=== PATIENT | male | born 1965 | race Two or more races ===

== ENCOUNTER 2016-06-10 08:11 | Inpatient (IN) | payer OTHER ==
[~2016-06-10] VITALS: Ht 170.2 cm; Wt 91.7 kg
[~2016-06-10 08:11] MED LIST: AMOX1TAB61 PO; Oxycodone Hcl/Acetaminophen PO
[2016-06-10] MEDS ORDERED: NITROGLYCERIN SUBLINGUAL 0.4 MG BOTTLE OF 25. SL PRN ×2 (08:30→11:30)
[2016-06-10] MEDS ORDERED: IV NORMAL SALINE 1000ML BAG 1,000 ML IV ONE ×2 (08:30→19:30)
[2016-06-10] MEDS: FENTANYL PF 100 MCG/2 ML VIAL. IV PRN ×5 (08:35→20:16)
--- NOTE | 2016-06-10 08:52 | RAD ---
Portable chest, 06/10/2016: History: Chest pain Comparison is made to a study from September 01, 2012. The heart is at the upper limits of normal in size. The pulmonary vascularity is within normal limits. No pulmonary infiltrate is seen. There is no evidence of pleural fluid. IMPRESSION: No acute cardiopulmonary abnormality is detected.
[2016-06-10 08:53] LABS: BASO # 0.1 x10^3/uL (0.0-0.2); BASO % 1 % (0-3); EOS % 2 % (0-3); LYMPH % 21 % (24-48); MEAN CORPUSCULAR HEMOGLOBIN 31 pg (25-35); MEAN CORPUSCULAR HGB CONC 33 g/dL (31-37); MEAN CORPUSCULAR VOLUME 92 fL (79-100); MONO % 5 % (0-9); NEUT % 72 % (31-73); PLATELET COUNT 273 x10^3/uL (140-400); RED BLOOD COUNT 4.22 x10^6/uL (4.30-5.70); RED CELL DISTRIBUTION WIDTH 13.7 % (11.5-14.5); WHITE BLOOD COUNT 14.5 x10^3/uL (4.0-11.0)
[2016-06-10 09:03] LABS: INR 1.1 (0.8-1.1); PROTHROMBIN TIME PATIENT 13.2 SEC (11.7-14.0)
[2016-06-10] MEDS ORDERED: IOHEXOL 350 MG/ML 100ML VIAL. IV ONE (09:15)
--- NOTE | 2016-06-10 09:21 | ED.ADGEN ---
Past Medical History Past Medical History: No Pertinent History, Kidney Stone Past Surgical History: Appendectomy Alcohol Use: None Drug Use: None Adult General Chief Complaint Chief Complaint: CHEST PAIN-CARDIAC NATURE HPI HPI Patient is a 50 year old man, with no known past no history, who presents emergency department via EMS with report of anterior chest pain and pressure that began about an hour prior to arrival. Patient states that he was seated at home, when he began experiencing pressure across intercourse of his chest, described as a heaviness, and a sharp sensation, any shortness of breath, nausea vomiting, any lightheadedness or dizziness, any weakness numbness or tingling. Patient received nitroglycerin 2, and 100 mg of fentanyl en route to the ED, states he is still sprinting severe chest pain upon arrival. Denies any abdominal pain, any injuries, any similar symptoms previously. Has not previously had a cardiac evaluation. Blood pressure noted to be 80s over 60s, equal in both upper extremities, with pulses equal in upper and lower extremities. No history of recent travel or surgery, no history of DVT or PE, no drugs, alcohol or cigarettes. Review of Systems Review of Systems Constitutional: Denies fever or chills. [] Eyes: Denies change in visual acuity. [] HENT: Denies nasal congestion or sore throat. [] Respiratory: Denies cough or shortness of breath. [] Cardiovascular: Midsternal chest pain, nonradiating, no edema. GI: Denies abdominal pain, nausea, vomiting, bloody stools or diarrhea. [] : Denies dysuria. [] Musculoskeletal: Denies back pain or joint pain. [] Integument: Denies rash. [] Neurologic: Denies headache, focal weakness or sensory changes. [] Endocrine: Denies polyuria or polydipsia. [] Lymphatic: Denies swollen glands. [] Psychiatric: Denies depression or anxiety. [] Current Medications Current Medications Current Medications Medications (Trade) Dose Ordered Sig/Carlton Start Time Stop Time Status Last Admin Dose Admin Fentanyl Citrate 25 mcg 25 mcg PRN Q15MIN PRN 06/10/16 08:30 06/11/16 08:29 06/10/16 09:25 25 MCG Iohexol (Omnipaque 350 Mg/ml) 90 ml 1X ONCE 06/10/16 09:15 06/10/16 09:16 DC 06/10/16 09:37 90 ML Multi-Ingredient Mouthwash/Gargle (Gi Cocktail Single Dose) 15 ml 1X ONCE 06/10/16 10:00 06/10/16 10:01 DC 06/10/16 09:58 15 ML Nitroglycerin (Nitrostat) 0.4 mg PRN Q5MIN PRN 06/10/16 08:30 06/11/16 08:29 Sodium Chloride (Iv Sodium Chloride 0.9% 1000ml Bag) 1,000 ml @ 1,000 mls/hr 1X ONCE 06/10/16 08:30 06/10/16 09:29 DC 06/10/16 08:20 1,000 MLS/HR Allergies Allergies Allergies Coded Allergies Type Severity Reaction Last Updated Verified No Known Drug Allergies 10/05/13 No Physical Exam Physical Exam Constitutional: Well developed, well nourished, distress secondary to pain, appears uncomfortable, non-toxic appearance. [] HENT: Normocephalic, atraumatic, bilateral external ears normal, oropharynx moist, no oral exudates, nose normal. [] Eyes: PERRLA, EOMI, conjunctiva normal, no discharge. [] Neck: Normal range of motion, no tenderness, supple, no stridor. [] Cardiovascular:Heart rate regular rhythm, no murmur, S1, S2, rubs or gallops. [] Lungs & Thorax: Bilateral breath sounds clear to auscultation, no wheezing, rhonchi, rales. No chest or crepitus or tenderness. Unable to reproduce symptoms with palpation. [] Abdomen: Bowel sounds normal, soft, no rebound, rigidity, no guarding no tenderness, no masses, no pulsatile masses. [] Skin: Warm, dry, no erythema, no rash. [] Back: No tenderness, no CVA tenderness. [] Extremities: No tenderness, no cyanosis, no clubbing, ROM intact, no edema. Negative Homans sign. [] Neurologic: Alert and oriented X 3, normal motor function, normal sensory function, no focal deficits noted. [] Psychologic: Affect normal, judgement normal, mood normal. [] Current Patient Data Vital Signs Vital Signs Date Time Temp Pulse Resp B/P Pulse Ox O2 Delivery O2 Flow Rate FiO2 06/10/16 09:32 82 18 108/70 97 Room Air 06/10/16 08:11 98.3 98.3 Lab Values Laboratory Tests Test 06/10/16 08:25 06/10/16 08:31 06/10/16 08:33 06/10/16 09:15 White Blood Count 14.5x10^3/uL (4.0-11.0) H Red Blood Count 4.22x10^6/uL (4.30-5.70) L Hemoglobin 13.0g/dL (13.0-17.5) Hematocrit 39.0% (39.0-53.0) Mean Corpuscular Volume 92fL (79-100) Mean Corpuscular Hemoglobin 31pg (25-35) Mean Corpuscular Hemoglobin Concent 33g/dL (31-37) Red Cell Distribution Width 13.7% (11.5-14.5) Platelet Count 273x10^3/uL (140-400) Neutrophils (%) (Auto) 72% (31-73) Lymphocytes (%) (Auto) 21% (24-48) L Monocytes (%) (Auto) 5% (0-9) Eosinophils (%) (Auto) 2% (0-3) Basophils (%) (Auto) 1% (0-3) Neutrophils # (Auto) 10.4x10^3uL (1.8-7.7) H Lymphocytes # (Auto) 3.0x10^3/uL (1.0-4.8) Monocytes # (Auto) 0.8x10^3/uL (0.0-1.1) Eosinophils # (Auto) 0.2x10^3/uL (0.0-0.7) Basophils # (Auto) 0.1x10^3/uL (0.0-0.2) Prothrombin Time 13.2SEC (11.7-14.0) Prothrombin Time INR 1.1 (0.8-1.1) PTT 28SEC (24-38) D-Dimer (Steph) 0.30ug/mlFEU (0.00-0.50) Troponin I Quantitative < 0.017ng/mL (0.000-0.055) TX-Ovy-L-Type Natriuretic Peptide 19pg/mL (0-124) Lipase 86U/L (73-393) POC Hemoglobin 13.3g/dL (14-18) L POC Hematocrit 39% (37-52) POC Sodium 140mmol/L (135-145) POC Potassium 4.0mmol/L (3.5-5.0) POC Chloride 103mmol/L (98-110) POC Total CO2 25mmol/L (23-32) Anion Gap 17mmol/L (6-14) H POC Blood Urea Nitrogen 13mg/dL (8-26) POC Creatinine 0.9mg/dL (0.5-1.4) Glucose Level 139mg/dL (70-99) H POC Ionized Calcium (Miryam) 1.12mmol/L (1.13-1.32) L POC Troponin I 0.00ng/ml (<0.08) Urine Collection Type Unknown Urine Color Aicha Urine Clarity Clear Urine pH 6.0 Urine Specific [place] >=1.030 Urine Protein Negativemg/dL (NEG-TRACE) Urine Glucose (UA) Negativemg/dL (NEG) Urine Ketones (Stick) Tracemg/dL (NEG) Urine Blood Negative (NEG) Urine Nitrite Negative (NEG) Urine Bilirubin Small (NEG) Urine Urobilinogen Dipstick 0.2mg/dL (0.2 mg/dL) Urine Leukocyte Esterase Negative (NEG) Urine RBC 0/HPF (0-2) Urine WBC 0/HPF (0-4) Urine Squamous Epithelial Cells Mod/LPF Urine Bacteria 0/HPF (0-FEW) Urine Opiates Screen Neg (NEG) Urine Methadone Screen Neg (NEG) Urine Barbiturates Neg (NEG) Urine Phencyclidine Screen Neg (NEG) Urine Amphetamine/Methamphetamine Neg (NEG) Urine Benzodiazepines Screen Neg (NEG) Urine Cocaine Screen Neg (NEG) Urine Cannabinoids Screen Neg (NEG) Urine Ethyl Alcohol Neg (NEG) Laboratory Tests 06/10/16 08:25 Laboratory Tests 06/10/16 08:31 EKG EKG EC: Sinus rhythm, heart rate 50 bpm, T-wave inversions noted in lead 3, QTC of 380, MS 162, QRS of 82, abnormal ECG, does not meet STEMI criteria. As interpreted by me. [] Radiology/Procedures Radiology/Procedures [] [facility] [address] [place], [place] [id number] IMAGING REPORT Signed PATIENT: ASHLEY NICHOLS ACCOUNT: [id number] : 1965 LOCATION: ER AGE: 50 SEX: M EXAM STATUS: REG ER ORD. PHYSICIAN: ALEXANDRA GABRIEL DO REASON: CP/hypotension/r/o dissection PROCEDURE: CTA CHEST CTA of the chest with and without contrast, 06/10/2016: History: Chest pain, possible aortic dissection Multidetector CT imaging was performed prior to and following an IV bolus injection of iodinated contrast material. 3-D volume rendered reconstructions of the aorta were produced from the postcontrast data set. The thoracic aorta is not enlarged. There is only minimal calcific plaquing of the aorta and coronary arteries. Pulsation type artifacts are seen related to the ascending aorta. There is no evidence of aortic dissection. No mediastinal or hilar adenopathy is seen. There are moderate peripheral groundglass and streaky opacities in the posterior aspects of both lungs suggesting atelectasis. A component of dependent pulmonary edema cannot be excluded. No pleural fluid is evident. IMPRESSION: 1. Minimal calcific plaquing of the aorta and coronary arteries. 2. No evidence of aortic aneurysm or dissection. 3. Moderate dependent atelectasis and/or edema in both lungs. PQRS Compliance Statement: One or more of the following individualized dose reduction techniques were utilized for this examination: 1. Automated exposure control 2. Adjustment of the mA and/or kV according to patient size 3. Use of iterative reconstruction technique Impressions: [facility] [address] [place] [address] IMAGING REPORT Signed PATIENT: ASHLEY NICHOLS ACCOUNT: [id number] : 1965 LOCATION: ER AGE: 50 SEX: M EXAM STATUS: PRE ER ORD. PHYSICIAN: ALEXANDRA GABRIEL DO REASON: CP PROCEDURE: PORTABLE CHEST 1V Portable chest, 06/10/2016: History: Chest pain Comparison is made to a study from September 01, 2012. The heart is at the upper limits of normal in size. The pulmonary vascularity is within normal limits. No pulmonary infiltrate is seen. There is no evidence of pleural fluid. IMPRESSION: No acute cardiopulmonary abnormality is detected. DICTATED and SIGNED BY: MORELIA DE LA TORRE MD DATE: 06/10/16 0848 CC: ISAI TILLEY; ALEXANDRA GABRIEL DO ~ Course & Med Decision Making Course & Med Decision Making Pertinent Labs and Imaging studies reviewed. (See chart for details) After receiving several doses of fentanyl, and a GI cocktail, patient is resting more comfortably. Initial troponin negative, due to the degree of his pain, and hypotension, CT of the chest obtained which was negative for evidence of dissection or other acute abnormalities. Patient's blood pressure did improve as his pain improved, and he had been holding his breath, and bearing down, and I believe that this was contributing to the hypotension, due to a vagal cause. Formal troponin also unremarkable, repeat ECG does not show any significant changes, patient noted to have left axis deviation, with abnormalities noted in lead 3, otherwise normalities identified. However patient has not previously had a cardiac evaluation, and is agreeable for initial hospital for additional evaluation of his chest pain to rule out ACS or other concerning cause, after discussion with patient and family at bedside. Findings as above discussed with Dr. Wahl on-call for the patient's primary care provider, patient accepted to his service as a full admission to the cardiac telemetry floor with cardiology consultation with Dr. Lee. She remained stable in sinus rhythm on the monitor, with pain improved, bridge ordered entered per Dr. Wahl's request. Dragon Disclaimer Dragon Disclaimer This electronic medical record was generated, in whole or in part, using a voice recognition dictation system. Departure Impression: Primary Impression: Chest pain Disposition: ADMITTED INPATIENT Admitting Physician: Sam Wahl Condition: IMPROVED Problem Qualifiers Primary Impression: Chest pain Chest pain type: unspecified Qualified Code: R07.9 - Chest pain, unspecified ALEXANDRA GABRIEL DO Jun 10, 2016 09:20
[2016-06-10 09:41] LABS: BARBITURATES NEG (NEG); BENZODIAZEPINES NEG (NEG); BILIRUBIN,URINE SMALL (NEG); CANNABINOIDS NEG (NEG); COCAINE NEG (NEG); GLUCOSE,URINE NEGATIVE (NEG); METHADONE NEG (NEG); NITRITE,URINE NEGATIVE (NEG); OPIATES NEG (NEG); PHENCYCLIDINE NEG (NEG); PROTEIN,URINE NEGATIVE (NEG-TRACE); UROBILINOGEN,URINE 0.2 mg/dL (0.2 mg/dL)
[2016-06-10 09:42] LABS: ETHANOL, URINE NEG (NEG)
[2016-06-10 09:48] LABS: BACTERIA,URINE 0 /HPF (0-FEW); RBC,URINE 0 /HPF (0-2); SQUAMOUS EPITHELIAL CELL,UR MOD /LPF; WBC,URINE 0 /HPF (0-4)
[2016-06-10] MEDS ORDERED: LIDO:MAALOX:DONNATAL 1:1:1 15 ML SINGLE DOSE SWSW ONE (10:00)
--- NOTE | 2016-06-10 10:15 | RAD ---
CTA of the chest with and without contrast, 06/10/2016: History: Chest pain, possible aortic dissection Multidetector CT imaging was performed prior to and following an IV bolus injection of iodinated contrast material. 3-D volume rendered reconstructions of the aorta were produced from the postcontrast data set. The thoracic aorta is not enlarged. There is only minimal calcific plaquing of the aorta and coronary arteries. Pulsation type artifacts are seen related to the ascending aorta. There is no evidence of aortic dissection. No mediastinal or hilar adenopathy is seen. There are moderate peripheral groundglass and streaky opacities in the posterior aspects of both lungs suggesting atelectasis. A component of dependent pulmonary edema cannot be excluded. No pleural fluid is evident. IMPRESSION: 1. Minimal calcific plaquing of the aorta and coronary arteries. 2. No evidence of aortic aneurysm or dissection. 3. Moderate dependent atelectasis and/or edema in both lungs. PQRS Compliance Statement: One or more of the following individualized dose reduction techniques were utilized for this examination: 1. Automated exposure control 2. Adjustment of the mA and/or kV according to patient size 3. Use of iterative reconstruction technique
[2016-06-10 10:35] LABS: ALBUMIN 3.5 g/dL (3.4-5.0); DIRECT BILIRUBIN 0.1 mg/dL (0.0-0.2); TOTAL BILIRUBIN 0.4 mg/dL (0.2-1.0); TOTAL PROTEIN 6.8 g/dL (6.4-8.2)
--- NOTE | 2016-06-10 11:00 | EKG ---
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
--- NOTE | 2016-06-10 11:06 | EKG ---
[facility] [address] [place] [address] Test Date: 2016-06-10 Test Time: 09:27:34 Pat Name: ASHLEY NICHOLS Department: Room: Gender: M Excellence Manager: : 1965 Requested By: ALEXANDRA GABRIEL Order Number: [id number] Reading MD: Toya Dawn Measurements Intervals [place] Rate: 80 P: 28 NE: 190 QRS: -12 QRSD: 82 T: 12 QT: 356 QTc: 414 Interpretive Statements SINUS RHYTHM LEFTWARD AXIS OTHERWISE NORMAL ECG RI6.01 No previous ECG available for comparison Electronically Signed On 06-13-2016 20:29:04 ENVIRONMENTAL HEALTH MANAGER by Toya Dawn
--- NOTE | 2016-06-10 11:13 | ACF ---
Admission Forms Criteria CARDIOLOGY GRG Clinical Indications for Admission to Inpatient Care ( Place 'X' for any and all applicable criteria): Hospital admission is needed for appropriate care of the patient because of ANY ONE of the following (1): [ ] I. Hemodynamic instability as indicated by ALL of the following (1)(2)(3) (4)(5) [ ]a) Vital signs or other findings not as expected for chronic patient condition or baseline [ ]b) Instability indicated by ANY ONE of the following: [ ]i) Hypotension [ ]ii) Symptomatic Tachycardia unresponsive to treatment ( e.g., analgesia, fluids, sedation as indicated) [ ]iii) Inadequate perfusion indicated by ANY ONE of the following: [ ] 1) Lactic acidosis (> 2 mmol/L) [ ] 2) New abnormal capillary refill (> 3 seconds) [ ] 3) Reduced urine output [ ] 4) New altered mental status [ ]iv) Orthostatic vital sign changes unresponsive to treatment (e.g., fluids) [ ]v) IV inotropic or vasopressor medication required to maintain adequate blood pressure or perfusion [ ] II. Severe heart failure as indicated by ANY ONE of the following(17)(18) [ ]a) Respiratory distress [ ]b) Hypotension [ ]c) Anasarca (refractory to outpatient therapy) [ ]d) Cardiac arrhythmias of immediate concern [ ]e) Myocardial ischemia [ ] III. Cardiac arrhythmias or findings of immediate concern indicated by ANY ONE of the following (19)(20): [ ] a) Heart rhythms that are inherently dangerous or unstable indicated by ANY ONE of the following (21)(22)(23): [ ] i) Resuscitated ventricular fibrillation or cardiac arrest [ ] ii) Ventricular escape rhythm [ ] iii) Sustained ventricular tachycardia (30 seconds or more of ventricular rhythm at greater than 100 beats per minute) [ ] iv) Nonsustained ventricular tachycardia and ANY ONE of the following: [ ] 1) Suspected cardiac ischemia as cause or consequence of ventricular tachycardia [ ] 2) In setting of acute myocarditis [ ] b) Unstable cardiac conduction defects indicated by ANY ONE of the following(23)(24)(25) [ ] i) Type II second-degree atrioventricular block [ ]ii) Third-degree atrioventricular block [ ]iii) New-onset left bundle branch block with suspected myocardial ischemia [ ]c) Any heart rhythm and ANY ONE of the following (21)(22)(26)(27) (28) [ ] i) Continuous long-term ECG monitoring needed (e.g., initiation of drug requiring monitoring for more than 24 hours) [ ] ii) Patient has automatic implanted cardioverter defibrillator that is repeatedly firing, malfunctioning, or in need of immediate adjustment of settings beyond the scope of ambulatory or observation care [ ]d) Heart rhythms of concern due to ANY ONE of the following: [ ] i) Hypotension [ ] ii) Respiratory distress [ ] iii) Association with other significant symptoms (e.g., bradycardia with syncope or ongoing dizziness, supraventricular tachycardia with chest pain (14)(15)(17) [ ] IV. Monitoring for cardiac contusion beyond the scope of observation care needed [A](30)(31)(32) [ ] V. Surgical or device complication (e.g., valve replacement complication , pacemaker dysfunction) (35)(41)(44)(45)(46) [ ] . Inpatient palliative care needed. [B](49) Also use Inpatient Palliative Care Criteria [ ] VII. Nonbacterial thrombotic (marantic) endocarditis (36)(43)(47)(48) [X] VIII. Cardiology condition, symptom, or finding for which emergency and observation care has failed or are not considered appropriate. [ ] IX. Acute valvular disease requiring inpatient as indicated by ANY ONE of the following (41) [ ]a) Acute valvular regurgitation (42) [ ]b) Noninfectious valvulitis (43) [ ]c) Obstructive valve thrombosis [ ]d) Paravalvular leak [ ]e) Other significant valvular disorder remaining after emergency or observation level of care (as appropriate) [ ]X. Pericardial disease requiring inpatient treatment as indicated by ANY ONE of the following (33)(34)(35)(36)(37) [ ]a) Suspected tamponade (38)(39)(40) [ ]b) Hemopericardium [ ]c) Other significant pericardial disorder remaining after emergency or observation level of care (as appropriate) [ ] XI. Cardiac ischemia beyond scope of emergency and observation care. [ ] XII. Hypertension requiring inpatient treatment as indicated by ANY ONE of the following (6)(7)(8) [ ]a) SBP greater than 220 mm Hg or DBP greater than 120 mmHg despite treatment [ ]b) SBP greater than 140 mm Hg or DBP greater than 100 mm Hg with evidence of acute end organ damage as indicated by ANY ONE of the following [ ] i) Encephalopathy [ ] ii) Acute renal failure as indicated by new onset of ANY ONE of the following (9)(10)(11)(12)(13) [ ]1) 3-fold rise in serum creatinine from baseline [ ]2) Serum creatinine greater than 4 mg/dL ( 354 micromoles/L) with acute rise greater than 0.5 mg/dL (44.2 micromoles/L) [ ]3) Reduction of more than 75% in estimated glomerular filtration rate from baseline [ ]4) Estimated glomerular filtration rate less than 35 mL/min/1.73m2 (0.59 mL/sec/1.73m2) in child up to 18 years of age [ ]5) Cessation of urine output indicated by ALL of the following [ ]A. Adequate volume status [ ]B. Inadequate urine output as indicated by ANY ONE of the following [ ]a. Urine output less than 0.3 mL/kg/hr for 24 hours [ ]b. Anuria (urine output less than 0.1 mL/kg/hr) for 12 hours [ ] iii) Aortic dissection [ ] iv) Myocardial Ischemia [ ] v) Left ventricular heart failure [ ]vi) Retinal Hemorrhage [ ]vii) Other significant finding [ ]c) Hypertension in child requiring inpatient treatment as indicated by ALL of the following(14)(15)(16) [ ] i) Outpatient treatment not effective, not available, or not appropriate [ ]ii) SBP or DBP greater than 95th percentile for age [ ]iii) Evidence of acute end organ damage as indicated by ANY ONE of the following [ ]1) Altered mental status [ ]2) Acute renal failure as indicated by new onset of ANY ONE of the following(9)(10)(11)(12)(13) [ ]A. 3-fold rise in serum creatinine from baseline [ ]B. Serum creatinine greater than 4 mg/dL (354 micromoles/L) with acute rise greater than 0.5 mg/dL (44.2 micromoles/L) [ ]C. Reduction of more than 75% in estimated glomerular filtration rate from baseline [ ]D. Estimated glomerular filtration rate less than 35 mL/min/1.73m2 (0.59 mL/sec/1.73m2) in child up to 18 years of age [ ]E. Cessation of urine output indicated by ALL of the following [ ]a. Adequate volume status [ ]b. Inadequate urine output as indicated by ANY ONE of the following [ ]i) Urine output less than 0.3 mL/kg/hr for 24 hours [ ]ii) Anuria ( urine output less than 0.1 mL/kg/hr) for 12 hours [ ]3) Severe headache [ ]4) Visual disturbance [ ]5) Retinal hemorrhage [ ]6) Other significant finding [ ]XIII. Complications of transplanted heart indicated by ANY ONE of the following(61): [ ]a) Acute graft rejection requiring inpatient management (eg, intravenous immunosuppression)(62)(63) [ ]b) Acute graft heart failure indicated by ANY ONE of the following(64): [ ]i) Hemodynamic instability [ ]ii) Cardiac arrhythmias of immediate concern [ ]iii) Pulmonary edema that is very severe (eg, mechanical ventilation needed, imminent or likely, need for 100% oxygen to keep oxygen saturation above 90%) [ ]iv) Pulmonary edema that is persistent as indicated by ALL of the following: [ ]1) New need for oxygen therapy to keep oxygen saturation above 90% (or increased FiO2 need from baseline) [ ]2) Has not improved sufficiently with emergency department or observation care IV diuretics or other heart failure treatments[E] [ ]v) Altered mental status that is severe or persistent [ ]vi) Increased creatinine (new on laboratory test) with reduction of more than 50% in estimated glomerular filtration rate from baseline [ ]vii) Progressively (ongoing) rising creatinine (known from past laboratory test) with reduction of more than 25% in estimated glomerular filtration rate from baseline [ ]viii) Acute renal failure [ ]ix) Acute peripheral ischemia (eg, examination shows pulseless, cool, mottled, or cyanotic extremity) [ ]x) Pulmonary artery catheter monitoring needed [ ]xi) Other sign or symptom of heart failure requiring inpatient treatment (ie, too severe or not responsive to outpatient and observation care treatment) [ ]c) Infection requiring inpatient management (eg, Hemodynamic instability, need for intravenous antimicrobial treatment)(66)(67)(68)(69)(70) [ ]d) Cardiac allograft vasculopathy requiring inpatient management ( eg evidence of cardiac ischemia)(71) [ ]e) Other complication of transplanted heart (eg, stroke, severe pulmonary hypertension, severe valvular dysfunction) requiring inpatient management(72) The original [facility] content created by [facility] has been revised. The portions of the content which have been revised are identified through the use of italic text or in bold, and [facility] has neither reviewed nor approved the modified material. All other unmodified content is copyright [email or web address]. Please see references footnoted in the original [facility] edition 2016 Admission Criteria Met?: Yes MIKAL GUERRERO Jun 10, 2016 11:13
[2016-06-10] MEDS ORDERED: ONDANSETRON PF 4 MG/2 ML VIAL. IV PRN (11:30)
[2016-06-10] MEDS ORDERED: MORPHINE SULFATE 4 MG/ML DISP.SYRIN. IV PRN ×2 (11:30→15:00)
[2016-06-10 11:55] VITALS: BP 103/64
[2016-06-10 12:25] VITALS: BP 147/115
[2016-06-10] MEDS ORDERED: LIDO:MAALOX:DONNATAL 1:1:1 15 ML SINGLE DOSE SWSW PRN ×2 (12:45→18:00)
[2016-06-10] MEDS: PANTOPRAZOLE 40 MG TABLET. PO SCH (12:57)
[2016-06-10] MEDS ORDERED: FAMOTIDINE 20 MG/2 ML VIAL IVP ONE (13:00)
--- NOTE | 2016-06-10 13:11 | EKG ---
[facility] [address] [place] [address] Test Date: 2016-06-10 Test Time: 13:06:32 Pat Name: ASHLEY NICHOLS Department: Room: 256 1 Gender: M Cryptographic Vulnerability Analyst: ÁNGEL : 1965 Requested By: REUBEN GRIGGS Order Number: [id number] Reading MD: Toya Dawn Measurements Intervals [place] Rate: 92 P: 31 NE: 172 QRS: -22 QRSD: 78 T: 9 QT: 326 QTc: 408 Interpretive Statements SINUS RHYTHM LEFTWARD AXIS OTHERWISE NORMAL ECG RI6.01 No previous ECG available for comparison Electronically Signed On 06-13-2016 20:29:51 FINISHING AREA OPERATOR by Toya Dawn
--- NOTE | 2016-06-10 14:35 | PDOC2 ---
GI CONSULT Reason For Consult: Chest pain relieved w/ GI cocktail HPI: HPI: 50 y/o male admitted through the ER. He speaks some Pashto and his family is present to help w/ additional translation. He is obviously quite uncomfortable during the interview. He says he had some mild chest discomfort yesterday so he didn't eat much. Pain was significantly worse this morning after drinking coffee. He was evaluated in the ER; apparently pain was not improved w/ nitro or Fentanyl but was better after GI cocktail. He has also received PPI and H2 delmer IV. He describes pain in his left and right chest radiating to left and right flank w/ epigastric pain. Pain is worse after eating (tried jello) and worse w/ deep breathing. 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 Additionally, he reports a h/o gastric ulcer on EGD >3 years ago ( says in [place]); he recalls biopsies being normal. He additionally has a h/o heartburn which was improved w/ ranitidine and omeprazole for about 4-6 months; he hasn't taken these in about 3 years. Currently he only has heartburn after eating spicy foods. He has lost 15-20 pounds in about a 6 months. He describes some nausea and retching this morning w/ pain. No previous colonoscopy. Noted a moderate amount of red blood in stool about 4 weeks ago w/o recurrence. Denies diarrhea or constipation. He used to drink heavily and now says he's sober except for "1-2 beers occasionally." No previous pancreas or gallbladder issues. PMH: PMH: PUD, GERD, hypertriglyceridemia, shoulder pain, appendectomy FH: Family History: No pertinent hx Social History: Smoke: <1 pack per day ALCOHOL: other (previously drank significantly but for 4 years has kept to only 1-2 beers occasionally) Drugs: None ROS: GEN: Denies fevers, chills, sweats HEENT: Denies blurred vision, sore throat CV: +chest pain RESP: Denies shortness of air, cough GI: Per HPI : Denies hematuria, dysuria ENDO: +weight loss NEURO: Denies confusion, dizziness MSK: +left shoulder pain SKIN: Denies jaundice, pruritus VItals: Vitals: Vital Signs Date Time Temp Pulse Resp B/P Pulse Ox O2 Delivery O2 Flow Rate FiO2 06/10/16 12:25 100 147/115 06/10/16 12:01 Room Air 06/10/16 11:55 99.1 24 91 99.1 Labs: Labs: Laboratory Tests Test 06/10/16 08:25 06/10/16 08:31 06/10/16 08:33 06/10/16 09:15 White Blood Count 14.5x10^3/uL (4.0-11.0) Red Blood Count 4.22x10^6/uL (4.30-5.70) Hemoglobin 13.0g/dL (13.0-17.5) Hematocrit 39.0% (39.0-53.0) Mean Corpuscular Volume 92fL (79-100) Mean Corpuscular Hemoglobin 31pg (25-35) Mean Corpuscular Hemoglobin Concent 33g/dL (31-37) Red Cell Distribution Width 13.7% (11.5-14.5) Platelet Count 273x10^3/uL (140-400) Neutrophils (%) (Auto) 72% (31-73) Lymphocytes (%) (Auto) 21% (24-48) Monocytes (%) (Auto) 5% (0-9) Eosinophils (%) (Auto) 2% (0-3) Basophils (%) (Auto) 1% (0-3) Neutrophils # (Auto) 10.4x10^3uL (1.8-7.7) Lymphocytes # (Auto) 3.0x10^3/uL (1.0-4.8) Monocytes # (Auto) 0.8x10^3/uL (0.0-1.1) Eosinophils # (Auto) 0.2x10^3/uL (0.0-0.7) Basophils # (Auto) 0.1x10^3/uL (0.0-0.2) Prothrombin Time 13.2SEC (11.7-14.0) Prothromb Time International Ratio 1.1 (0.8-1.1) Activated Partial Thromboplast Time 28SEC (24-38) D-Dimer (Steph) 0.30ug/mlFEU (0.00-0.50) Total Bilirubin 0.4mg/dL (0.2-1.0) Direct Bilirubin 0.1mg/dL (0.0-0.2) Aspartate Amino Transf (AST/SGOT) 18U/L (15-37) Alanine Aminotransferase (ALT/SGPT) 19U/L (16-63) Alkaline Phosphatase 79U/L (46-116) Troponin I Quantitative < 0.017ng/mL (0.000-0.055) YX-Gsv-L-Type Natriuretic Peptide 19pg/mL (0-124) Total Protein 6.8g/dL (6.4-8.2) Albumin 3.5g/dL (3.4-5.0) Lipase 86U/L (73-393) Bedside Hemoglobin 13.3g/dL (14-18) Bedside Hematocrit 39% (37-52) Bedside Sodium 140mmol/L (135-145) Bedside Potassium 4.0mmol/L (3.5-5.0) Bedside Chloride 103mmol/L (98-110) Bedside Total CO2 25mmol/L (23-32) Anion Gap 17mmol/L (6-14) Bedside Blood Urea Nitrogen 13mg/dL (8-26) Bedside Creatinine 0.9mg/dL (0.5-1.4) Glucose Level 139mg/dL (70-99) Bedside Ionized Calcium (Miryam) 1.12mmol/L (1.13-1.32) Bedside Troponin I 0.00ng/ml (<0.08) Urine Collection Type Unknown Urine Color Aicha Urine Clarity Clear Urine pH 6.0 Urine Specific Monroe >=1.030 Urine Protein Negativemg/dL (NEG-TRACE) Urine Glucose (UA) Negativemg/dL (NEG) Urine Ketones (Stick) Tracemg/dL (NEG) Urine Blood Negative (NEG) Urine Nitrite Negative (NEG) Urine Bilirubin Small (NEG) Urine Urobilinogen Dipstick 0.2mg/dL (0.2 mg/dL) Urine Leukocyte Esterase Negative (NEG) Urine RBC 0/HPF (0-2) Urine WBC 0/HPF (0-4) Urine Squamous Epithelial Cells Mod/LPF Urine Bacteria 0/HPF (0-FEW) Urine Opiates Screen Neg (NEG) Urine Methadone Screen Neg (NEG) Urine Barbiturates Neg (NEG) Urine Phencyclidine Screen Neg (NEG) Urine Amphetamine/Methamphetamine Neg (NEG) Urine Benzodiazepines Screen Neg (NEG) Urine Cocaine Screen Neg (NEG) Urine Cannabinoids Screen Neg (NEG) Urine Ethyl Alcohol Neg (NEG) Allergies: Coded Allergies: No Known Drug Allergies (Unverified , 10/05/13) Medications: Current Medications Medications (Trade) Dose Ordered Sig/Carlton Route PRN Reason Start Time Stop Time Status Last Admin Dose Admin Fentanyl Citrate 25 mcg 25 mcg PRN Q15MIN PRN IV PAIN GREATER THAN 3/10 06/10/16 08:30 06/11/16 08:29 06/10/16 09:25 Sodium Chloride (Iv Sodium Chloride 0.9% 1000ml Bag) 1,000 ml @ 1,000 mls/hr 1X ONCE IV 06/10/16 08:30 06/10/16 09:29 DC 06/10/16 08:20 Iohexol (Omnipaque 350 Mg/ml) 90 ml 1X ONCE IV 06/10/16 09:15 06/10/16 09:16 DC 06/10/16 09:37 Multi-Ingredient Mouthwash/Gargle (Gi Cocktail Single Dose) 15 ml 1X ONCE SWSW 06/10/16 10:00 06/10/16 10:01 DC 06/10/16 09:58 Pantoprazole Sodium (Protonix) 40 mg DAILYAC PO 06/10/16 13:30 06/10/16 12:57 Multi-Ingredient Mouthwash/Gargle (Gi Cocktail Single Dose) 30 ml PRN Q8HRS PRN SWSW CHEST PAIN 06/10/16 12:45 06/10/16 12:58 Famotidine (Pepcid) 40 mg 1X ONCE IVP 06/10/16 13:00 06/10/16 13:01 DC 06/10/16 13:59 Imaging: Imaging: CXR IMPRESSION: No acute cardiopulmonary abnormality is detected. Chest CTA IMPRESSION: 1. Minimal calcific plaquing of the aorta and coronary arteries. 2. No evidence of aortic aneurysm or dissection. 3. Moderate dependent atelectasis and/or edema in both lungs. PE: GEN: appears quite uncomfortable HEENT: Atraumatic, PERRL LUNGS: tachypneic HEART: tachycardic ABD: BS+, epigastric tenderness EXTREMITY: No edema SKIN: No rashes, no jaundice NEURO/PSYCH: A & O 3 MSK: tender over sternum toward right and left chest wrapping to right and left flank A/P: A/P: Chest, flank, and epigastric pain -gradual onset yesterday, much worse today -worse w/ deep breathing, eating jello, also w/ palpation -improved w/ GI cocktail H/o PUD, GERD -reports previous EGD >3 years ago showing ulcer w/ normal biopsies -previously took H2 delmer and PPI w/ improved of GERD symptoms, quit 3 years ago Nausea, retching -once this morning, feels related to severe pain NSAID use for left shoulder pain -daily x 3 months Weight loss -15-20 pounds unintentionally x 6 months CRC screen -no previous colonoscopy -reports bloody stools 4 weeks ago w/o recurrence ?past alcohol abuse -- D/w Dr. Dawn - will proceed w/ echocardiogram, possible stress test tomorrow IF no plans for EGD which she recommends. Will review w/ Dr. Murcia. PATRICIA RIVERO Jun 10, 2016 14:35
[2016-06-10 15:00] VITALS: BP 106/65
[2016-06-10 16:09] LABS: CHOLESTEROL/HDL RATIO 5.5
--- NOTE | 2016-06-10 17:22 | EKG ---
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
--- NOTE | 2016-06-10 17:36 | CARD ---
APPROVED REPORT EXAM: Two-dimensional and M-mode echocardiogram with Doppler and color Doppler. Other Information Quality : Average Rhythm : NSR INDICATION Chest Pain 2D DIMENSIONS RVDd2.2 (2.9-3.5cm)Left Atrium(2D)2.9 (1.6-4.0cm) IVSd1.0 (0.7-1.1cm)Aortic Root(2D)2.9 (2.0-3.7cm) LVDd3.8 (3.9-5.9cm)LVOT Diameter2.2 (1.8-2.4cm) PWd1.1 (0.7-1.1cm)LVDs2.2 (2.5-4.0cm) FS (%) 22.7 %SV45.7 ml LVEF(%)54.5 (>50%) Aortic Valve AoV Peak Abdi.119.4cm/sAoV VTI18.3cm AO Peak GR.5.7mmHgLVOT VTI 14.63cm AO Mean GR.3mmHgAVA (VTI)2.90cm2 Mitral Valve MV E Ppsfhvfb80.4cm/sMV E Peak Gr.0mmHg MV DECEL UGHB110anQC A Bdxeyjow56.7cm/s MV E Mean Gr.1mmHgMV XUV32qg E/A Ratio1.1MV A Xlggcusq74jj MVA (PHT)22.00cm2 Tricuspid Valve TR P. Eimpbjiy568ej/sRAP WJISFRKQ4rjCu TR Peak Gr.23bpDyEPIX44ldVx LEFT VENTRICLE The left ventricle is normal size. There is normal left ventricular wall thickness. Left ventricle sy stolic function is normal. The Ejection Fraction is 50-55%. There is normal LV segmental wall motion. The left ventricular diastolic function and filling is normal for age. RIGHT VENTRICLE The right ventricle is normal size. The right ventricular systolic function is normal. ATRIA The left atrium size is normal. The right atrium size is normal. The interatrial septum is intact wit h no evidence for an atrial septal defect or patent foramen ovale as noted on 2-D or Doppler imaging. AORTIC VALVE The aortic valve is normal in structure and function. The aortic valve is trileaflet. Doppler and Col or Flow revealed no significant aortic regurgitation. There is no significant aortic valvular stenosi s. MITRAL VALVE The mitral valve is normal in structure and function. There is no mitral valve stenosis. Doppler and Color Flow revealed no mitral valve regurgitation noted. TRICUSPID VALVE The tricuspid valve is normal in structure and function. Doppler and Color Flow revealed trace to mil d tricuspid regurgitation. The PA pressure was estimated at 21 mmHg. There is no tricuspid valve sten osis. PULMONIC VALVE The pulmonic valve is not well visualized. Doppler and Color Flow revealed no pulmonic valvular regur gitation. There is no pulmonic valvular stenosis. GREAT VESSELS The aortic root is normal in size. Normal pulmonary venous flow (Doppler). The IVC is normal in size and collapses >50% with inspiration. PERICARDIAL EFFUSION There is no evidence of significant pericardial effusion. Critical Notification Critical Value: No <Conclusion> The left ventricle is normal size. There is normal left ventricular wall thickness. Left ventricle systolic function is normal. The Ejection Fraction is 50-55%. The left ventricular diastolic function and filling is normal for age. There is no evidence of significant pericardial effusion. There is no mitral valve stenosis. Doppler and Color Flow revealed no mitral valve regurgitation noted. The lef atrium is of a normal size. There is no aortic stenosis or regurgitation. The right ventricle is of a normal size with normal systolic function. Doppler and Color Flow revealed trace to mild tricuspid regurgitation. The PA pressure was estimated at 21 mmHg. The pulmonic valve is norfal.
--- NOTE | 2016-06-10 18:31 | EKG ---
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
[2016-06-10] MEDS ORDERED: INFLUENZA VAX SCREEN BY RX. MC ONE (18:45)
[2016-06-10 18:54] VITALS: BP 102/63
[2016-06-10] MEDS ORDERED: VANCOMYCIN 1GM IVPB FOR OMNI 250 ML IV ONE (19:45)
[2016-06-10] MEDS ORDERED: FLU VACC QUAD 2016-17 (36MOS+)/PF 0.5 ML SYRINGE. VAX IM ONE (20:00)
[2016-06-10] MEDS: IPRATRPIUM/ALBUTEROL 0.5/2.5MG 3 ML NEBU. NEB SCH (20:16)
[2016-06-10 20:20] LABS: OBC FLU VALID
[2016-06-10] MEDS ORDERED: VANCOMYCIN 2 GM in IV NORMAL SALINE 500ML BAG 500 ML IV ONE (20:30)
[2016-06-10] MEDS: ACETAMINOPHEN 325 MG TABLET. PO PRN (21:52)
[2016-06-10 22:44] VITALS: BP 101/58
[2016-06-10] MEDS: PIPERACILLIN/TAZOBACTAM 4.5 GM in IV NORMAL SALINE 100ML 100 ML IV SCH (22:47)
[2016-06-11] VITALS (8 sets, daily range): BP systolic 81–114; BP diastolic 43–64
--- NOTE | 2016-06-11 04:34 | CONS ---
DATE OF CONSULTATION: 06/10/2016 HISTORY OF PRESENT ILLNESS: This is a 50-year-old white male who came into the Emergency Room this morning. He woke up this morning, had a cup of coffee and went to work. There, he started to experience severe pain across the chest. The pain was intermittent. It would come on for about a minute and a half minute or so and then will leave 5 minutes only to come again. Thus, it was recurrent. The pain radiated to the intrascapular area, mainly on the left side. It radiated to both arms, but more prominent on the left arm. There is no radiation to the neck or to the jaws. He did become diaphoretic. Every time he had the pain, he would become diaphoretic. There was also shortness of breath. He came into the Emergency Room. There, the EKGs said to have been normal. Subsequent cardiac enzymes have been normal. He has never had a similar episode of pain before. He some years ago had epigastric pain. At that time, he had ulcers in the stomach. He is fairly active. He runs up and down stairs. 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 He has had no chest pain with this level of activity and no shortness of breath. He gives no history of hypertension or diabetes mellitus. He is not aware of his cholesterol level. In the Emergency Room, he was told that he was hypotensive. He smokes half a pack of cigarettes a day. He used to drink more frequently, but mainly beer up until 3 years ago. Now, he only has an occasional beer. He drinks coffee. He has osteoarthritis and has been taking Motrin. He is not aware of his lipid levels. FAMILY HISTORY: Very remarkable. Father of heart problems at age 78. Mother at age 72 of heart problems. Both of them in [facility]. His sister was only 35 years old and she of cardiac problems. PHYSICAL EXAMINATION: GENERAL: At the present time, he says he still has the pain, which he rates as 7-8/10. The son informs me that his pain tolerance is high because when he had appendicitis, he drove himself to the Emergency Room. He is not diaphoretic. He does not appear short of breath. VITAL SIGNS: The heart rate is 100 per minute. The blood pressure 140/115. LUNGS: Clear. HEART: The heart sounds are normal with no murmur or gallop. ABDOMEN: Soft. NECK: The carotids are palpable with no bruits. EXTREMITIES: The distal pulses are palpable and there is no edema. LABORATORY DATA: 1. An EKG was described as being normal. A stat EKG has been requested, but not yet been done. 2. Enzymes are normal. IMPRESSION: 1. Chest discomfort, worrisome for a cardiac etiology because of the associated shortness of breath and diaphoresis. We will obtain an MPI tomorrow. He has continued to have the pain and we will get a repeat EKG which has not yet been done. If there are any acute changes, he will need coronary arteriograms. 2. The pain is also worrisome for gastrointestinal. The nurses informed me that the GI cocktail helped the pain, but he denies it. He also said that the nitroglycerin did not help the pain nor did the fentanyl. We will try morphine. Thank you for asking us to see him. MARY WOOD MD DR: ROSALINDA/fatimah JOB#: [id number] / [id number]
[2016-06-11 04:50] LABS: CALCIUM 7.8 mg/dL (8.5-10.1); GFR 78.8; POTASSIUM 4.1 mmol/L (3.5-5.1)
[2016-06-11 04:57] LABS: BASO # 0.1 x10^3/uL (0.0-0.2); BASO % 1 % (0-3); EOS % 2 % (0-3); HEMOGLOBIN 10.9 g/dL (13.0-17.5); LYMPH # 2.9 x10^3/uL (1.0-4.8); LYMPH % 26 % (24-48); MEAN CORPUSCULAR HEMOGLOBIN 31 pg (25-35); MEAN CORPUSCULAR HGB CONC 34 g/dL (31-37); MEAN CORPUSCULAR VOLUME 92 fL (79-100); MONO % 9 % (0-9); NEUT % 62 % (31-73); PLATELET COUNT 216 x10^3/uL (140-400); RED CELL DISTRIBUTION WIDTH 13.9 % (11.5-14.5)
[2016-06-11] MEDS: PIPERACILLIN/TAZOBACTAM 4.5 GM in IV NORMAL SALINE 100ML 100 ML IV SCH ×4 (05:57→23:48)
[2016-06-11] MEDS ORDERED: HYDROMORPHONE 2 MG/ML VIAL. IV PRN (07:00)
[2016-06-11] MEDS ORDERED: MORPHINE SULFATE 2 MG/ML DISP.SYRIN. IV PRN (07:00)
[2016-06-11] MEDS ORDERED: PROCHLORPERAZINE 10 MG/2 ML VIAL. IV PRN (07:00)
[2016-06-11] MEDS ORDERED: ONDANSETRON PF 4 MG/2 ML VIAL. IV PRN (07:00)
[2016-06-11] MEDS ORDERED: IV RINGERS,LACTATED 1000ML 1,000 ML IV SCH ×2 (07:00→14:30)
[2016-06-11] MEDS ORDERED: FENTANYL PF 100 MCG/2 ML VIAL. IV PRN ×2 (07:00)
[2016-06-11] MEDS ORDERED: LIDOCAINE 1% 1 ML SYRINGE. ID PRN (07:00)
[2016-06-11] MEDS ORDERED: REGADENOSON 0.4 MG/5 ML DISP.SYRIN. IV ONE (07:45)
--- NOTE | 2016-06-11 08:16 | RAD ---
Portable chest, 06/10/2016, 7:58 PM: History: Fever, hypoxia Comparison is made to a study from earlier the same day. The heart is at the upper limits of normal in size. The depth of inspiration is suboptimal. There is mild streaky left basilar atelectasis/infiltrate. Minimal linear atelectasis is present in the right base. The upper lung arreola are clear. No pleural fluid is seen. IMPRESSION: Suboptimal inspiration with mild left basilar atelectasis/infiltrate.
--- NOTE | 2016-06-11 08:31 | EKG ---
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
[2016-06-11] MEDS: IPRATRPIUM/ALBUTEROL 0.5/2.5MG 3 ML NEBU. NEB SCH ×4 (08:45→19:47)
[2016-06-11] MEDS: ACETAMINOPHEN 325 MG TABLET. PO PRN (10:19)
[2016-06-11] MEDS: PANTOPRAZOLE 40 MG TABLET. PO SCH (10:19)
--- NOTE | 2016-06-11 10:19 | PDOC ---
Provider Note Provider Note Pt seen .H&P dictated. #[id number] REUBEN GRIGGS MD Jun 11, 2016 10:19
--- NOTE | 2016-06-11 11:03 | PDOC ---
Infectious Disease Note ROS ROS GEN: Denies fevers, chills, sweats HEENT: Denies blurred vision, sore throat CV: Denies chest pain RESP: Denies shortness of air, cough GI: Denies n/v/d NEURO: Denies confusion, dizziness MSK: Denies weakness, joint pain/swelling Vital Sign Vital Signs Vital Signs Date Time Temp Pulse Resp B/P Pulse Ox O2 Delivery O2 Flow Rate FiO2 06/11/16 08:47 98 Nasal Cannula 2.0 06/11/16 06:50 98.8 83 16 94/60 98.8 Physical Exam PHYSICAL EXAM GENERAL: NAD, Alert HEENT: PERRL, OC/OP NECK: Supple, no JVD, no LN LUNGS: Clear HEART: S1S2, no gallop, no murmur ABD: Soft, NT, no organomegaly, no rebound EXT: No edema, no cyanosis 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, oriented x 3, no focal neurologic deficit SKIN: No rash IV: ok Labs Lab Laboratory Tests Test 06/10/16 14:05 06/10/16 19:55 06/10/16 20:00 06/11/16 04:10 Troponin I Quantitative < 0.017ng/mL (0.000-0.055) < 0.017ng/mL (0.000-0.055) < 0.017ng/mL (0.000-0.055) Influenza Type A Antigen Negative (NEGATIVE) Influenza Type B Antigen Negative (NEGATIVE) White Blood Count 11.0x10^3/uL (4.0-11.0) Red Blood Count 3.50x10^6/uL (4.30-5.70) Hemoglobin 10.9g/dL (13.0-17.5) Hematocrit 32.0% (39.0-53.0) Mean Corpuscular Volume 92fL (79-100) Mean Corpuscular Hemoglobin 31pg (25-35) Mean Corpuscular Hemoglobin Concent 34g/dL (31-37) Red Cell Distribution Width 13.9% (11.5-14.5) Platelet Count 216x10^3/uL (140-400) Neutrophils (%) (Auto) 62% (31-73) Lymphocytes (%) (Auto) 26% (24-48) Monocytes (%) (Auto) 9% (0-9) Eosinophils (%) (Auto) 2% (0-3) Basophils (%) (Auto) 1% (0-3) Neutrophils # (Auto) 6.8x10^3uL (1.8-7.7) Lymphocytes # (Auto) 2.9x10^3/uL (1.0-4.8) Monocytes # (Auto) 1.0x10^3/uL (0.0-1.1) Eosinophils # (Auto) 0.2x10^3/uL (0.0-0.7) Basophils # (Auto) 0.1x10^3/uL (0.0-0.2) Sodium Level 143mmol/L (136-145) Potassium Level 4.1mmol/L (3.5-5.1) Chloride Level 108mmol/L (98-107) Carbon Dioxide Level 27mmol/L (21-32) Anion Gap 8 (6-14) Blood Urea Nitrogen 14mg/dL (8-26) Creatinine 1.0mg/dL (0.7-1.3) Estimated GFR (Cockcroft-Gault) 78.8 Glucose Level 104mg/dL (70-99) Calcium Level 7.8mg/dL (8.5-10.1) Objective Assessment Fever Leukocytosis CP/Abd pain H/o PUD treated with ABx ? H-pylori Plan Plan of Care Agree with Zosyn, hold further Vanc F/u labs and cults Await further card and GI f/u D/w family Thank you # [id number] JULIANA TAYLOR MD Jun 11, 2016 11:03
--- NOTE | 2016-06-11 11:27 | PDOC ---
PROGRESS NOTES Subjective Subjective Patient says his pain is improving today. He also says he was short of breath for a brief moment this morning, but this is improving as well. Objective Objective Vital Signs Date Time Temp Pulse Resp B/P Pulse Ox O2 Delivery O2 Flow Rate FiO2 06/11/16 11:14 98.0 80 18 97/61 97 Nasal Cannula 98.0 06/11/16 08:47 2.0 Intake and Output 06/11/16 07:00 Intake Total 3381 ml Output Total 600 ml Balance 2781 ml Intake Oral 920 ml IV Total 1000 ml Other 1461 ml Output Urine Total 600 ml # Voids 1 # Bowel Movements 1 Physical Exam Heart: Regular rate, Normal S1, Normal S2, No murmurs Lungs: Clear to auscultation Assessment Assessment Problems Medical Problems: (1) Chest pain Status: Acute Plan Plan of Care Chest pain and dyspnea are improving but continuing to persist. Continue current medications. Still waiting for results of MPI and EKG. Will comment with further recommendations when those results become available. Comment Review of Relevant I have reviewed the following items wil (where applicable) has been applied. Labs Laboratory Tests Test 06/10/16 08:25 06/10/16 08:31 06/10/16 08:33 06/10/16 09:15 White Blood Count 14.5x10^3/uL (4.0-11.0) Red Blood Count 4.22x10^6/uL (4.30-5.70) Hemoglobin 13.0g/dL (13.0-17.5) Hematocrit 39.0% (39.0-53.0) Mean Corpuscular Volume 92fL (79-100) Mean Corpuscular Hemoglobin 31pg (25-35) Mean Corpuscular Hemoglobin Concent 33g/dL (31-37) Red Cell Distribution Width 13.7% (11.5-14.5) Platelet Count 273x10^3/uL (140-400) Neutrophils (%) (Auto) 72% (31-73) Lymphocytes (%) (Auto) 21% (24-48) Monocytes (%) (Auto) 5% (0-9) Eosinophils (%) (Auto) 2% (0-3) Basophils (%) (Auto) 1% (0-3) Neutrophils # (Auto) 10.4x10^3uL (1.8-7.7) Lymphocytes # (Auto) 3.0x10^3/uL (1.0-4.8) Monocytes # (Auto) 0.8x10^3/uL (0.0-1.1) Eosinophils # (Auto) 0.2x10^3/uL (0.0-0.7) Basophils # (Auto) 0.1x10^3/uL (0.0-0.2) Prothrombin Time 13.2SEC (11.7-14.0) Prothromb Time International Ratio 1.1 (0.8-1.1) Activated Partial Thromboplast Time 28SEC (24-38) D-Dimer (Steph) 0.30ug/mlFEU (0.00-0.50) Hemoglobin A1c 5.1% (4.8-5.6) Total Bilirubin 0.4mg/dL (0.2-1.0) Direct Bilirubin 0.1mg/dL (0.0-0.2) Aspartate Amino Transf (AST/SGOT) 18U/L (15-37) Alanine Aminotransferase (ALT/SGPT) 19U/L (16-63) Alkaline Phosphatase 79U/L (46-116) Troponin I Quantitative < 0.017ng/mL (0.000-0.055) VO-Rog-R-Type Natriuretic Peptide 19pg/mL (0-124) Total Protein 6.8g/dL (6.4-8.2) Albumin 3.5g/dL (3.4-5.0) Triglycerides Level 198mg/dL (0-150) Cholesterol Level 215mg/dL (0-200) LDL Cholesterol, Calculated 136mg/dL (0-100) VLDL Cholesterol, Calculated 40mg/dL (0-40) HDL Cholesterol 39mg/dL (40-60) Cholesterol/HDL Ratio 5.5 Lipase 86U/L (73-393) Bedside Hemoglobin 13.3g/dL (14-18) Bedside Hematocrit 39% (37-52) Bedside Sodium 140mmol/L (135-145) Bedside Potassium 4.0mmol/L (3.5-5.0) Bedside Chloride 103mmol/L (98-110) Bedside Total CO2 25mmol/L (23-32) Anion Gap 17mmol/L (6-14) Bedside Blood Urea Nitrogen 13mg/dL (8-26) Bedside Creatinine 0.9mg/dL (0.5-1.4) Glucose Level 139mg/dL (70-99) Bedside Ionized Calcium (Miryam) 1.12mmol/L (1.13-1.32) Bedside Troponin I 0.00ng/ml (<0.08) Urine Collection Type Unknown Urine Color Aicha Urine Clarity Clear Urine pH 6.0 Urine Specific Benge >=1.030 Urine Protein Negativemg/dL (NEG-TRACE) Urine Glucose (UA) Negativemg/dL (NEG) Urine Ketones (Stick) Tracemg/dL (NEG) Urine Blood Negative (NEG) Urine Nitrite Negative (NEG) Urine Bilirubin Small (NEG) Urine Urobilinogen Dipstick 0.2mg/dL (0.2 mg/dL) Urine Leukocyte Esterase Negative (NEG) Urine RBC 0/HPF (0-2) Urine WBC 0/HPF (0-4) Urine Squamous Epithelial Cells Mod/LPF Urine Bacteria 0/HPF (0-FEW) Urine Opiates Screen Neg (NEG) Urine Methadone Screen Neg (NEG) Urine Barbiturates Neg (NEG) Urine Phencyclidine Screen Neg (NEG) Urine Amphetamine/Methamphetamine Neg (NEG) Urine Benzodiazepines Screen Neg (NEG) Urine Cocaine Screen Neg (NEG) Urine Cannabinoids Screen Neg (NEG) Urine Ethyl Alcohol Neg (NEG) Test 06/10/16 14:05 06/10/16 19:55 06/10/16 20:00 06/11/16 04:10 Troponin I Quantitative < 0.017ng/mL (0.000-0.055) < 0.017ng/mL (0.000-0.055) < 0.017ng/mL (0.000-0.055) Influenza Type A Antigen Negative (NEGATIVE) Influenza Type B Antigen Negative (NEGATIVE) White Blood Count 11.0x10^3/uL (4.0-11.0) Red Blood Count 3.50x10^6/uL (4.30-5.70) Hemoglobin 10.9g/dL (13.0-17.5) Hematocrit 32.0% (39.0-53.0) Mean Corpuscular Volume 92fL (79-100) Mean Corpuscular Hemoglobin 31pg (25-35) Mean Corpuscular Hemoglobin Concent 34g/dL (31-37) Red Cell Distribution Width 13.9% (11.5-14.5) Platelet Count 216x10^3/uL (140-400) Neutrophils (%) (Auto) 62% (31-73) Lymphocytes (%) (Auto) 26% (24-48) Monocytes (%) (Auto) 9% (0-9) Eosinophils (%) (Auto) 2% (0-3) Basophils (%) (Auto) 1% (0-3) Neutrophils # (Auto) 6.8x10^3uL (1.8-7.7) Lymphocytes # (Auto) 2.9x10^3/uL (1.0-4.8) Monocytes # (Auto) 1.0x10^3/uL (0.0-1.1) Eosinophils # (Auto) 0.2x10^3/uL (0.0-0.7) Basophils # (Auto) 0.1x10^3/uL (0.0-0.2) Sodium Level 143mmol/L (136-145) Potassium Level 4.1mmol/L (3.5-5.1) Chloride Level 108mmol/L (98-107) Carbon Dioxide Level 27mmol/L (21-32) Anion Gap 8 (6-14) Blood Urea Nitrogen 14mg/dL (8-26) Creatinine 1.0mg/dL (0.7-1.3) Estimated GFR (Cockcroft-Gault) 78.8 Glucose Level 104mg/dL (70-99) Calcium Level 7.8mg/dL (8.5-10.1) Laboratory Tests Test 06/10/16 14:05 06/10/16 19:55 06/10/16 20:00 06/11/16 04:10 Troponin I Quantitative < 0.017ng/mL (0.000-0.055) < 0.017ng/mL (0.000-0.055) < 0.017ng/mL (0.000-0.055) Influenza Type A Antigen Negative (NEGATIVE) Influenza Type B Antigen Negative (NEGATIVE) White Blood Count 11.0x10^3/uL (4.0-11.0) Red Blood Count 3.50x10^6/uL (4.30-5.70) Hemoglobin 10.9g/dL (13.0-17.5) Hematocrit 32.0% (39.0-53.0) Mean Corpuscular Volume 92fL (79-100) Mean Corpuscular Hemoglobin 31pg (25-35) Mean Corpuscular Hemoglobin Concent 34g/dL (31-37) Red Cell Distribution Width 13.9% (11.5-14.5) Platelet Count 216x10^3/uL (140-400) Neutrophils (%) (Auto) 62% (31-73) Lymphocytes (%) (Auto) 26% (24-48) Monocytes (%) (Auto) 9% (0-9) Eosinophils (%) (Auto) 2% (0-3) Basophils (%) (Auto) 1% (0-3) Neutrophils # (Auto) 6.8x10^3uL (1.8-7.7) Lymphocytes # (Auto) 2.9x10^3/uL (1.0-4.8) Monocytes # (Auto) 1.0x10^3/uL (0.0-1.1) Eosinophils # (Auto) 0.2x10^3/uL (0.0-0.7) Basophils # (Auto) 0.1x10^3/uL (0.0-0.2) Sodium Level 143mmol/L (136-145) Potassium Level 4.1mmol/L (3.5-5.1) Chloride Level 108mmol/L (98-107) Carbon Dioxide Level 27mmol/L (21-32) Anion Gap 8 (6-14) Blood Urea Nitrogen 14mg/dL (8-26) Creatinine 1.0mg/dL (0.7-1.3) Estimated GFR (Cockcroft-Gault) 78.8 Glucose Level 104mg/dL (70-99) Calcium Level 7.8mg/dL (8.5-10.1) Medications Current Medications Nitroglycerin (Nitrostat) 0.4 mg PRN Q5MIN PRN SL CP RATING > 1/10; Start 06/10 at 08:30; Stop 06/11/16 at 08:29; Status DC Fentanyl Citrate 25 mcg 25 mcg PRN Q15MIN PRN IV PAIN GREATER THAN 3/10 Last administered on 06/10/16t 20:16; Start 06/10/16 at 08:30; Stop 06/11/16 at 08:29 ; Status DC Sodium Chloride (Iv Sodium Chloride 0.9% 1000ml Bag) 1,000 ml @ 1,000 mls/hr 1X ONCE IV Last administered on 06/10/16 08:20; Start 06/10/16 at 08:30; Stop 06/10/16 at 09:29; Status DC Iohexol (Omnipaque 350 Mg/ml) 90 ml 1X ONCE IV Last administered on 06/10/16 09:37; Start 06/10/16 at 09:15; Stop 06/10/16 at 09:16; Status DC Multi-Ingredient Mouthwash/Gargle (Gi Cocktail Single Dose) 15 ml 1X ONCE SWSW Last administered on 06/10/16 09:58; Start 06/10/16 at 10:00; Stop 06/10/16 at 10:01; Status DC Ondansetron HCl (Zofran) 4 mg PRN Q8HRS PRN IV NAUSEA/VOMITING Last administered on 06/10/16 20:16; Start 06/10/16 at 11:30; Stop 06/11/16 at 11:29 Morphine Sulfate 4 mg PRN Q2HR PRN IV PAIN Last administered on 06/10/16 17:15 ; Start 06/10/16 at 11:30; Stop 06/11/16 at 11:29 Acetaminophen (Tylenol) 650 mg PRN Q4HRS PRN PO FEVER Last administered on 06/11 10:19; Start 06/10/16 at 11:30; Stop 06/11/16 at 11:29 Nitroglycerin (Nitrostat) 0.4 mg PRN Q5MIN PRN SL CHEST PAIN; Start 06/10/16 at 11:30; Stop 06/11/16 at 11:29 Pantoprazole Sodium (Protonix) 40 mg DAILYAC PO Last administered on 06/11/16 10:19; Start 06/10/16 at 13:30 Multi-Ingredient Mouthwash/Gargle (Gi Cocktail Single Dose) 30 ml PRN Q8HRS PRN SWSW CHEST PAIN Last administered on 06/10/16 12:58; Start 06/10/16 at 12: 45; Stop 06/10/16 at 18:00; Status DC Famotidine (Pepcid) 40 mg 1X ONCE IVP Last administered on 06/10/16 13:59; Start 06/10/16 at 13:00; Stop 06/10/16 at 13:01; Status DC Morphine Sulfate 3 mg PRN Q2HR PRN IV PAIN Last administered on 06/10/16 15:16 ; Start 06/10/16 at 15:00 Ondansetron HCl (Zofran) 4 mg PRN Q6HRS PRN IV Nausea; Start 06/11/16 at 07:00 ; Stop 06/12/16 at 06:59 Fentanyl Citrate (Fentanyl 2ml Vial) 25 mcg PRN Q5MIN PRN IV MILD PAIN; Start 06/11/16 at 07:00; Stop 06/12/16 at 06:59 Fentanyl Citrate (Fentanyl 2ml Vial) 50 mcg PRN Q5MIN PRN IV MODERATE PAIN; Start 06/11/16 at 07:00; Stop 06/12/16 at 06:59 Morphine Sulfate 1 mg 1 mg PRN Q10MIN PRN IV SEVERE PAIN; Start 06/11/16 at 07: 00; Stop 06/12/16 at 06:59 Lactated Ringer's (Iv Lactated Ringers) 1,000 ml @ 0 mls/hr Q0M IV ; Start at 07:00; Stop 06/11/16 at 18:59 Lidocaine HCl 2 ml 1X PRN PRN ID IV START; Start 06/11/16 at 07:00; Stop at 06:59 Hydromorphone HCl (Dilaudid) 0.5 mg PRN Q10MIN PRN IV SEVERE PAIN, Second choice; Start 06/11/16 at 07:00; Stop 06/12/16 at 06:59 Prochlorperazine Edisylate (Compazine) 5 mg PACU PRN PRN IV NAUSEA; Start 06/11 at 07:00; Stop 06/12/16 at 06:59 Multi-Ingredient Mouthwash/Gargle (Gi Cocktail Single Dose) 15 ml PRN Q2HRS PRN SWSW CHEST PAIN Last administered on 06/10/16 18:10; Start 06/10/16 at 18: 00 Info (Do NOT chart on this placeholder) 1 each 1X ONCE MC ; Start 06/10/16 at 18:45; Stop 06/10/16 at 18:46; Status UNV Influenza Virus Vaccine Quadrival 0.5 ml 0.5 ml ONCE ONCE VAX IM ; Start at 20:00; Stop 06/10/16 at 20:01; Status DC Sodium Chloride 1,000 ml @ 125 mls/hr 1X ONCE IV Last administered on 19:39; Start 06/10/16 at 19:30; Stop 06/11/16 at 03:29; Status DC Vancomycin HCl 250 ml @ 250 mls/hr 1X ONCE IV ; Start 06/10/16 at 19:45; Stop 06/10/16 at 20:44; Status UNV Piperacillin Sod/ Tazobactam Sod/ Sodium Chloride (Zosyn/Iv Sodium Chloride 0.9 % 100ml) 100 ml @ 200 mls/hr Q6HRS IV ; Start 06/11/16 at 20:30; Stop 06/11/16 at 20:30; Status DC Albuterol/ Ipratropium 3 ml 3 ml RTQID NEB Last administered on 06/11/16 08:45 ; Start 06/10/16 at 20:00 Vancomycin HCl 2 gm/Sodium Chloride 500 ml @ 250 mls/hr 1X ONCE IV Last administered on 06/10/16 20:17; Start 06/10/16 at 20:30; Stop 06/10/16 at 22:29 ; Status DC Piperacillin Sod/ Tazobactam Sod/ Sodium Chloride (Zosyn/Iv Sodium Chloride 0.9 % 100ml) 100 ml @ 200 mls/hr Q6HRS IV Last administered on 06/11/16 05:57; Start 06/10/16 at 20:30 Regadenoson (Lexiscan) 0.4 mg 1X ONCE IV Last administered on 06/11/16 09:56 ; Start 06/11/16 at 07:45; Stop 06/11/16 at 07:46; Status DC Active Scripts Active Vitals/I & O Vital Sign - Last 24 Hours 06/10/16 06/10/16 06/10/16 06/10/16 11:55 12:01 12:25 15:00 Temp 99.1 99.0 99.1 99.0 Pulse 105 100 113 Resp 18 B/P 103/64 147/115 106/65 Pulse Ox 91 92 O2 Delivery Room Air Room Air Room Air 06/10/16 06/10/16 06/10/16 06/10/16 15:16 15:46 17:15 17:45 Resp 18 18 18 Pulse Ox 97 97 98 O2 Delivery Room Air Room Air Room Air Room Air 06/10/16 06/10/16 06/10/16 06/10/16 18:54 19:30 20:16 20:17 Temp 100.8 100.8 Pulse 101 Resp 18 B/P 102/63 Pulse Ox 93 96 96 O2 Delivery Nasal Cannula Nasal Cannula Nasal Cannula Nasal Cannula O2 Flow Rate 2.0 2.0 2.0 2.0 06/10/16 06/10/16 06/11/16 06/11/16 20:47 22:44 03:08 06:50 Temp 98.8 97.7 98.8 98.8 97.7 98.8 Pulse 90 79 83 Resp 16 16 18 16 B/P 101/58 93/56 94/60 Pulse Ox 94 97 98 98 O2 Delivery Nasal Cannula Nasal Cannula Nasal Cannula Nasal Cannula O2 Flow Rate 2.0 2.0 2.0 2.0 06/11/16 06/11/16 06/11/16 07:39 08:47 11:14 Temp 98.0 98.0 Pulse 80 Resp 18 B/P 97/61 Pulse Ox 98 97 O2 Delivery Nasal Cannula Nasal Cannula Nasal Cannula O2 Flow Rate 2.0 2.0 Intake and Output 06/10/16 06/10/16 06/11/16 15:00 23:00 07:00 Intake Total 1000 ml 720 ml 1661 ml Output Total 600 ml Balance 1000 ml 120 ml 1661 ml MEENU TRAN MD Jun 11, 2016 11:26
--- NOTE | 2016-06-11 12:45 | PDOC ---
Provider Note Provider Note dictated OMEGA VILLEGAS MD Jun 11, 2016 12:45
--- NOTE | 2016-06-11 12:59 | RAD ---
APPROVED REPORT Test Type: Pharmacological Stress Nurse/Tech: zachary cline Test Indications: chest pain Cardiac History: NONE STATED, SEE EHR Medications: SEE EHR Medical History: SMOKER, SEE EHR Resting ECG: SR Resting Heart Rate: 76 bpm Resting Blood Pressure: 97/51mmHg Pretest Chest Pain: No chest pain Nurse/Tech Notes LUNG SOUNDS CLEAR, S1S2 WNL. Consent: The procedure was explained to the patient in lay terms. Informed consent was witnessed. David eout was entered into [facility]. History and Stress Test performed by EMIR Douglas Pharm. Details Pharmacologic stress testing was performed using 0.4mg per 5ml of regadenoson given intravenously ove r 7-10 seconds. Stress Symptoms NONE STATED. POST EXERCISE Reason for Termination: Infusion complete Max HR: 112 bpm Max Blood Pressure: 97/51mmHg Blood Pressure response to exercise: Normal blood pressure response during stress. Heart Rate response to exercise: WNL Chest Pain: No. Arrhythmia: No. ST Change: No. Imaging Protocol IMAGE PROTOCOL: Rest Tc-99m/stress Tc-99m 1 day Rest: Stress: Viability: Radiopharm.Tc99m [id number] Sestamibi Dose10.3mCi 36.2mCi Duration 15min. 10min. Img Date 06/11/2016 06/11/2016 Inj-Img [id number]. 75min. Rest Admin Site:IV - Left AntecubitalAdministrator:EMIR Douglas Stress Admin Site: IV - Left AntecubitalAdministrator: MELODY Cifuentes, ARRT (R)(N) STRESS DATA End Diast. Vol.123.0mlAv. Heart Rate75.0bpm End Syst. Vol.37.0mlCO Index BSA0.0L/min Myocardial Ustt895.0gEject. Iftjwaqf46.0% Stress Rates Pk. Fill Rate2.62EDV/secLVtime Pk. Fill 223.06msec Pk. Empty Rate3.68ESV/secLVtime Pk. Ezkyl972.11msec 04/21 Pk. Fill1.80EDV/sec Stress Scores Regional WT0.00Summed WT2.00 Regional WM0.00Summed WM0.00 LV Perf. Quant 17 Seg. SSS4.00 17 Seg. SRS0.00 17 Seg. SDS4.00 Stress Defect Extent (% LAD)0.00Rest Defect Extent (% LAD)0.00Rev. Defect Extent (% LAD)0.00 Stress Defect Extent (% LCX) 30.00Rest Defect Extent (% LCX)0.00Rev. Defect Extent (% LCX)12.50 Stress Defect Extent (% RCA)0.00Rest Defect Extent (% RCA)0.00Rev. Defect Extent (% RCA)0.00 Stress Defect Extent (% MAGALIS)5.70Rest Defect Extent (% MAGALIS)0.00Rev. Defect Extent (% MAGALIS)2.40 Conclusion 1. No electrocardiographic changes suggestive of myocardial ischemia with pharmacological stress. 2. Moderate sized mixed perfusion defect over the lateral wallof a mild degree. 3. Normal wall motion and wall thickening with an ejection fraction of 70%. 4. Scan indicates low to moderate risk for future cardiac events.
--- NOTE | 2016-06-11 13:19 | CONS ---
DATE OF CONSULTATION: ATTENDING PHYSICIAN: Dr. Wahl. REASON FOR CONSULTATION: Chest pain. HISTORY OF PRESENT ILLNESS: The patient is a 50-year-old male, who has some history of tobacco use. He came to the hospital complaining of chest pain, which started across from left to right. The patient states he has some history of burping as well as bloating after food. He was seen in the Emergency Room. The family states that he has some flu-like symptoms. Anyway he was afebrile today, but his T-max was 100.8 last night. He had a CT chest, which was reviewed by me. There was no evidence of thoracic aneurysm. There were some bibasilar atelectasis or infiltrates. No significant pleural effusion seen. Consultation requested for further evaluation and management. He did felt better after GI cocktail. PAST MEDICAL HISTORY: The patient is significant for history of minimal tobaccoism. History of possible GERD and PUD. PAST SURGICAL HISTORY: Appendectomy. ALLERGIES: None. REVIEW OF SYSTEMS: As discussed in my history of present illness, otherwise noncontributory. SOCIAL HISTORY: The patient has a history of tobacco use. Probably averaging 10 years. PHYSICAL EXAMINATION: VITAL SIGNS: Stable. NECK: Supple. LUNGS: Clear. CARDIOVASCULAR: Regular rate and rhythm. ABDOMEN: Soft, nontender. EXTREMITIES: With no pitting edema. LABORATORY DATA: Reviewed. White cell count 11.0, which was 14.5, hemoglobin is 10.9 and platelets are 216. BUN is 14 and creatinine 1.0. IMPRESSION: 1. Chest pain appears to be atypical. This got better with GI cocktail, most likely due to peptic ulcer disease and gastroesophageal reflux disease. I do not suspect any thromboembolic disease. 2. Fever. I suspect viral pneumonitis. He has some bibasilar atelectasis or infiltrates is best seen on the CT chest. RECOMMENDATIONS: 1. Follow GI recommendations. He has previous EGD more than 3 years ago, which showed ulcer with normal biopsies. Continue with H2 delmer and PPI. His symptoms have improved. 2. Monitor fever. Rule out influenza. 3. Continue with present Zosyn as initiated on admission. 4. Continue DuoNeb. 5. Discussed with the patient's family. 6. V/Q scan OMEGA U. VILLEGAS, MD DR: NEDA/fatimah JOB#: [id number] / [id number] BILL
[2016-06-11] MEDS ORDERED: IV NORMAL SALINE 1000ML BAG 1,000 ML IV ONE (13:30)
[2016-06-11] MEDS ORDERED: LIDOCAINE 2% PF Vial for OR 5 ML VIAL. ONE (13:55)
[2016-06-11] MEDS ORDERED: PROPOFOL 20 ML IV ONE (13:55)
--- NOTE | 2016-06-11 14:52 | HP ---
ADMIT DATE: 06/10/2016 REASON FOR ADMISSION TO THE HOSPITAL: Chest pain, for cardiac evaluation. PRIMARY CARE PHYSICIAN: Matteo Abraham. ATTENDING PHYSICIAN: Sam Griggs MD. HISTORY OF PRESENT ILLNESS: The patient is a 50-year-old male who came to the Emergency Room and severe chest pain across the chest and lasted about couple of minutes and came to the Emergency Room and says anterior chest down to the shoulder blade. The patient had a CT angiogram of the chest negative for PE. Cardiac enzymes negative. EKG negative for ischemia. The patient was admitted for further evaluation and treatment. 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 PAST MEDICAL HISTORY: No history of heart disease. PERSONAL HISTORY: Smokes half a pack for 25 years, has been a heavy drinker in the past, but quit 3 years ago. FAMILY HISTORY: Positive for heart attack in the mother and father also disease of the heart. ALLERGIES: No known allergies. MEDICATIONS AT HOME: None. REVIEW OF SYSTEMS: CARDIAC: Chest pain. LUNGS: No cough. GASTROINTESTINAL: No nausea. Had some heartburn. Rest of her systems was reviewed and negative. PHYSICAL EXAMINATION: GENERAL: The patient is not in distress today. VITAL SIGNS: Temperature 98, pulse 60, respirations 26, blood pressure 84/58, and 97% on room air. HEENT: Head is atraumatic. Pupils equal. Oral cavity: No congestion. NECK: Supple. Thyroid not enlarged. JVD not elevated. CHEST: Symmetrical. CARDIOVASCULAR: S1, S2. LUNGS: Clear to auscultation. ABDOMEN: Soft. Bowel sounds present, no mass palpable. EXTERNAL GENITALIA: No Mitchell. RECTAL: Deferred. EXTREMITIES: No calf tenderness. The patient has some point tenderness in the right shoulder as well as left costochondral junction. LABORATORY DATA: Shows a white count of 14, came down to 11, hemoglobin 13, platelets 273. Sodium 140, potassium 4.0, BUN 13, creatinine 0.9. A1c 5.1. LFT was normal. Cholesterol is 215, LDL 136, HDL 39. Troponin was negative x 3. INR is okay 1.1. Urine drug screen was negative. Serology, negative for flu. Chest x-ray, no acute abnormality. CT angiogram, negative for PE or aortic dissection. FINAL IMPRESSION: 1. Chest pain, severe for further investigation. 2. Rule out coronary artery disease, strong family history of coronary artery disease. 3. Possible gastroesophageal reflux disease with ulceration. 4. History of smoking and alcoholism in the past. PLAN: At this time, was admit to the hospital, seen by Cardiology, scheduled for a stress test, seen by GI, scheduled for EGD. If the stress test is negative, patient will be able to go home in the next 24-48 hours. SAM GRGIGS MD DR: CHAYITO/fatimah JOB#: [id number] / [id number] MATTEO Reynolds
--- NOTE | 2016-06-11 15:05 | PDOC4 ---
PROCEDURE Procedure EGD/biopsies Indication: chest/abdominal pain Meds: per anesthesia Findings: E--irregular zline/? Bashir's 39-40 with "tongues" of salmon-colored mucosa. Took biopsies. G-Scattered erosions, antrum D--erosions/scarring in bulb w/o discrete ulcer. Mohamud. well. IMP: Reflux with ?Bashir's; certainly could account for symptoms. Gastric/duodenal erosions with scarring in bulb c/w prior ulcer. REC: PPI, po and consider chronic. Await biopsies. Home at your discretion from GI standpoint. Consider screening colonoscopy as outpatient. Will check iron studies re: the anemia. Thanks. MARIA ISABEL CLARK MD Jun 11, 2016 15:05
--- NOTE | 2016-06-11 15:46 | CONS ---
DATE OF CONSULTATION: 06/11/2016 The patient is in room 266. REQUESTING PHYSICIAN: Dr. Wahl. REASON FOR CONSULTATION: Fever. HISTORY OF PRESENT ILLNESS: The patient is a very pleasant 50-year-old gentleman with past medical history of peptic ulcer disease. He states when he was diagnosed with this, he was told he had bad breath and was treated with antibiotics. He states recently two nights ago on Wednesday, , he has slow onset of abdominal pain, which preceded overnight and into the morning of the . Then about 7:00 on the , he had an abrupt pain and increasing pain. He had some accompanying nausea. The pain was centered in the middle, it did travel across his chest to the right and then also to both shoulders and down his left arm. He denies any headaches, no sinus issues, sore throat or cough. No vomiting. No dysuria, frequency, or urgency. No constipation or diarrhea. He presented to [facility] on . A white blood cell count of 14.5. He has had normal troponins. Urinalysis was clean. Influenza screen was negative. CT scan of the chest was performed and showed no evidence of aneurysm, dissection. He had moderate dependent atelectasis or edema in both legs. He did have a temperature of 100.8 and placed on vancomycin, Zosyn and admitted to the hospital. Currently, he is lying comfortably, has been evaluated by GI as well as cardiology. PAST MEDICAL HISTORY: Positive for peptic ulcer disease, history of appendicitis, hypertriglyceridemia, gastroesophageal reflux disease, shoulder pain. PAST SURGICAL HISTORY: Positive for appendectomy. REVIEW OF SYSTEMS: Otherwise negative except for mentioned above. ALLERGIES: NO KNOWN DRUG ALLERGIES. 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 No tobacco. FAMILY HISTORY: Positive for lymphoma in his sister. Also history of diabetes, hypertension, heart disease. CURRENT MEDICATIONS: Include Zosyn, vancomycin x 1, Pepcid, Zofran. Other meds are available and reviewed in the chart. PHYSICAL EXAMINATION: VITAL SIGNS: T-max had been 100.8, currently 98.8, pulse 83, respirations 16, blood pressure 94/60, satting 98% on 2 liters. CONSTITUTIONAL: He is pleasant, cooperative, in no acute distress. HEENT: Pupils are equal and reactive. Normal conjunctivae. Oral cavity and pharynx is clear. NECK: Supple. Good range of motion. LUNGS: Clear. HEART: Regular, S1, S2. ABDOMEN: Soft, nontender, nondistended, no guarding or rebound. EXTREMITIES: No clubbing, cyanosis or gross edema. SKIN: Without signs of rash. NEUROLOGIC: He is alert and appropriate, moves all extremities. SKIN: Warm without signs of rash. Affect is appropriate. LABORATORY DATA: White count 11, hemoglobin 10.9, platelets of 216. Glucose 103, creatinine of 1. He had normal liver function study tests on arrival. Urinalysis was clean. Influenza screen was negative. CT scan was reviewed in history of present illness. Chest x-ray, some atelectasis. IMPRESSION: 1. Fever. 2. Leukocytosis. 3. Chest pain/abdominal pain. 4. History of peptic ulcer disease treated with antibiotics, questionable secondary to H. pylori. RECOMMENDATIONS: For now, I agree with the Zosyn. No need for further vancomycin. Follow up labs, cultures, await further cardiology as well as GI followup. This was discussed with his family. Thank you for allowing us to participate in the patient's care. If you have any questions, please do not hesitate to contact me. JULIANA TAYLOR MD DR: JAE/fatimah JOB#: [id number] / [id number]
[2016-06-11 17:01] LABS: % SAT IRON 15 % (15-34); IRON,SERUM 36 ug/dL (65-175)
[2016-06-11] MEDS ORDERED: PIPERACILLIN/TAZOBACTAM 4.5 GM in IV NORMAL SALINE 100ML 100 ML IV SCH (20:30)
--- NOTE | 2016-06-11 20:36 | PDOC ---
Provider Note Provider Note Covering for Dr. Lee. He says his chest pain is much better but still there. He now says it's pleuritic in nature because it increases with a deep breath. MPI showed a lateral wall mixed perfusion defect. Significant findings on EGD which is probably the cause of the pain. I do not believe it's necessary to proceed with further cardiac workup such as a cardiac catheterization at this time. Treat the Bashir's esophagitis follow up with Dr. Lee as an outpatient. Certainly has an elevated cholesterol level and needs to be placed on a statin. After receiving PPI for several weeks he could be placed on aspirin at 81 mg a day. MARY WOOD MD Jun 11, 2016 20:36
[2016-06-11] MEDS ORDERED: ATORVASTATIN CALCIUM 40 MG TABLET. PO SCH (21:00)
[2016-06-12 02:45] VITALS: BP 99/58
[2016-06-12 05:33] LABS: BASO # 0.1 x10^3/uL (0.0-0.2); BASO % 1 % (0-3); EOS % 2 % (0-3); HEMATOCRIT 32.5 % (39.0-53.0); HEMOGLOBIN 11.3 g/dL (13.0-17.5); LYMPH # 1.8 x10^3/uL (1.0-4.8); LYMPH % 18 % (24-48); MEAN CORPUSCULAR HEMOGLOBIN 32 pg (25-35); MEAN CORPUSCULAR HGB CONC 35 g/dL (31-37); MEAN CORPUSCULAR VOLUME 91 fL (79-100); MONO % 8 % (0-9); NEUT % 72 % (31-73); PLATELET COUNT 225 x10^3/uL (140-400); RED BLOOD COUNT 3.57 x10^6/uL (4.30-5.70); RED CELL DISTRIBUTION WIDTH 13.6 % (11.5-14.5); WHITE BLOOD COUNT 10.3 x10^3/uL (4.0-11.0)
[2016-06-12] MEDS: PANTOPRAZOLE 40 MG TABLET. PO SCH (06:20)
[2016-06-12] MEDS: PIPERACILLIN/TAZOBACTAM 4.5 GM in IV NORMAL SALINE 100ML 100 ML IV SCH (06:20)
[2016-06-12] MEDS: IPRATRPIUM/ALBUTEROL 0.5/2.5MG 3 ML NEBU. NEB SCH ×2 (07:35→11:13)
--- NOTE | 2016-06-12 08:14 | PDOC ---
Infectious Disease Note Subjective Subjective Doing well. No Fever and is hungry. Pain is better ROS ROS GEN: Denies fevers, chills, sweats HEENT: Denies blurred vision, sore throat CV: Denies chest pain RESP: Denies shortness of air, cough GI: Denies n/v/d NEURO: Denies confusion, dizziness MSK: Denies weakness, joint pain/swelling Vital Sign Vital Signs Vital Signs Date Time Temp Pulse Resp B/P Pulse Ox O2 Delivery O2 Flow Rate FiO2 06/12/16 07:36 96 Room Air 06/12/16 02:45 99.4 85 16 99/58 99.4 06/11/16 23:30 2.0 Physical Exam PHYSICAL EXAM .GENERAL: NAD, Alert. in chair and looks well HEENT: PERRL, OC/OP -clear NECK: Supple, no JVD, no LN LUNGS: Clear HEART: S1S2, no gallop, no murmur ABD: Soft, NT, no organomegaly, no rebound EXT: No edema, no cyanosis [employer]ING [employer]: Alert, oriented x 3, no focal neurologic deficit SKIN: No rash IV: ok Labs Lab Laboratory Tests Test 06/11/16 12:45 06/11/16 16:30 06/12/16 05:00 Procalcitonin 1.94ng/mL (0.00-0.10) Iron Level 36ug/dL (65-175) Total Iron Binding Capacity 242ug/dL (250-450) Iron Saturation 15% (15-34) White Blood Count 10.3x10^3/uL (4.0-11.0) Red Blood Count 3.57x10^6/uL (4.30-5.70) Hemoglobin 11.3g/dL (13.0-17.5) Hematocrit 32.5% (39.0-53.0) Mean Corpuscular Volume 91fL (79-100) Mean Corpuscular Hemoglobin 32pg (25-35) Mean Corpuscular Hemoglobin Concent 35g/dL (31-37) Red Cell Distribution Width 13.6% (11.5-14.5) Platelet Count 225x10^3/uL (140-400) Neutrophils (%) (Auto) 72% (31-73) Lymphocytes (%) (Auto) 18% (24-48) Monocytes (%) (Auto) 8% (0-9) Eosinophils (%) (Auto) 2% (0-3) Basophils (%) (Auto) 1% (0-3) Neutrophils # (Auto) 7.4x10^3uL (1.8-7.7) Lymphocytes # (Auto) 1.8x10^3/uL (1.0-4.8) Monocytes # (Auto) 0.8x10^3/uL (0.0-1.1) Eosinophils # (Auto) 0.2x10^3/uL (0.0-0.7) Basophils # (Auto) 0.1x10^3/uL (0.0-0.2) Objective Assessment Fever - better. Cults neg Leukocytosis -better CP/Abd pain - s/p EGD "Reflux with ?Bashir's; certainly could account for symptoms. Gastric/duodenal erosions with scarring in bulb c/w prior ulcer" H/o PUD treated with ABx ? H-pylori Plan Plan of Care D/c Tim No need for abx ID to sign off D/w family JULIANA TAYLOR MD Jun 12, 2016 08:14
[2016-06-12 09:00] VITALS: BP 94/60
--- NOTE | 2016-06-12 09:59 | PDOC ---
PROGRESS NOTES Subjective Subjective feels better ,anxious to go home Objective Objective Vital Signs Date Time Temp Pulse Resp B/P Pulse Ox O2 Delivery O2 Flow Rate FiO2 06/12/16 09:00 98.2 89 16 94/60 96 Room Air 98.2 06/12/16 08:00 2.0 Intake and Output 06/12/16 07:00 Intake Total 1750 ml Balance 1750 ml Intake Oral 700 ml IV Total 1050 ml # Voids 8 # Bowel Movements 1 Physical Exam Heart: Regular rate, Normal S1, Normal S2, No murmurs Lungs: Clear to auscultation Diagnosis Problem List Problems Medical Problems: (1) Chest pain Status: Acute Assessment Assessment Problems Medical Problems: (1) Chest pain Status: Acute FINAL IMPRESSION: 1. Chest pain, severe for further investigation. 2. Rule out coronary artery disease, strong family history of coronary artery disease. 3. Possible gastroesophageal reflux disease with ulceration. 4. History of smoking and alcoholism in the past. PLAN: EGD gastritis. echo good lvf stress test neg for ischemia. d/c home today. see meds. At this time, was admit to the hospital, seen by Cardiology, scheduled for a stress test, seen by GI, scheduled for EGD. If the stress test is negative, patient will be able to go home in the next 24-48 hours. Problems: Plan Plan of Care Problems Medical Problems: (1) Chest pain Status: Acute Comment Review of Relevant I have reviewed the following items wil (where applicable) has been applied. Labs Laboratory Tests Test 06/11/16 12:45 06/11/16 16:30 06/12/16 05:00 Procalcitonin 1.94ng/mL (0.00-0.10) Iron Level 36ug/dL (65-175) Total Iron Binding Capacity 242ug/dL (250-450) Iron Saturation 15% (15-34) White Blood Count 10.3x10^3/uL (4.0-11.0) Red Blood Count 3.57x10^6/uL (4.30-5.70) Hemoglobin 11.3g/dL (13.0-17.5) Hematocrit 32.5% (39.0-53.0) Mean Corpuscular Volume 91fL (79-100) Mean Corpuscular Hemoglobin 32pg (25-35) Mean Corpuscular Hemoglobin Concent 35g/dL (31-37) Red Cell Distribution Width 13.6% (11.5-14.5) Platelet Count 225x10^3/uL (140-400) Neutrophils (%) (Auto) 72% (31-73) Lymphocytes (%) (Auto) 18% (24-48) Monocytes (%) (Auto) 8% (0-9) Eosinophils (%) (Auto) 2% (0-3) Basophils (%) (Auto) 1% (0-3) Neutrophils # (Auto) 7.4x10^3uL (1.8-7.7) Lymphocytes # (Auto) 1.8x10^3/uL (1.0-4.8) Monocytes # (Auto) 0.8x10^3/uL (0.0-1.1) Eosinophils # (Auto) 0.2x10^3/uL (0.0-0.7) Basophils # (Auto) 0.1x10^3/uL (0.0-0.2) Microbiology 06/10/16 Blood Culture - Preliminary, Resulted NO GROWTH AFTER 1 DAY Medications Current Medications Atorvastatin Calcium (Lipitor) 40 mg QHS PO Last administered on 06/11/16 21: 18; Start 06/11/16 at 21:00 Lactated Ringer's (Iv Lactated Ringers) 1,000 ml @ 125 mls/hr Q8H IV ; Start at 14:30; Stop 06/11/16 at 20:40; Status DC Lidocaine HCl 5 ml 5 ml STK-MED ONCE .ROUTE ; Start 06/11/16 at 13:55; Stop at 13:56; Status DC Piperacillin Sod/ Tazobactam Sod 4.5 gm/Sodium Chloride 100 ml @ 200 mls/hr Q6HRS IV ; Start 06/11/16 at 20:30; Stop 06/11/16 at 20:30; Status DC Propofol (Diprivan) 20 ml @ As Directed STK-MED ONCE IV ; Start 06/11/16 at 13: 55; Stop 06/11/16 at 13:56; Status DC Sodium Chloride 1,000 ml @ 1,000 mls/hr 1X ONCE IV Last administered on 13:30; Start 06/11/16 at 13:30; Stop 06/11/16 at 14:29; Status DC Vitals/I & O Vital Sign - Last 24 Hours 06/11/16 06/11/16 06/11/16 06/11/16 11:14 12:24 14:16 14:17 Temp 98.0 98.8 98.0 98.8 Pulse 80 79 Resp 18 16 B/P 97/61 Pulse Ox 97 94 O2 Delivery Nasal Cannula Nasal Cannula Nasal Cannula O2 Flow Rate 2.0 2.0 06/11/16 06/11/16 06/11/16 06/11/16 15:11 15:41 16:03 16:10 Temp 98.8 98.8 Pulse 76 79 79 79 Resp 18 18 18 18 B/P 92/56 92/63 92/63 94/63 Pulse Ox 99 97 97 97 O2 Delivery Nasal Cannula Nasal Cannula Nasal Cannula O2 Flow Rate 2 2 2 06/11/16 06/11/16 06/11/16 06/11/16 16:20 16:21 16:35 17:00 Pulse 60 87 96 Resp 12 12 B/P 109/56 114/64 100/58 Pulse Ox 100 100 100 O2 Delivery Nasal Cannula Nasal Cannula Nasal Cannula Nasal Cannula O2 Flow Rate 2.0 2.0 2.0 2.0 06/11/16 06/11/16 06/11/16 06/11/16 17:00 19:15 19:47 20:10 Temp 98.3 98.3 Pulse 104 85 Resp 12 16 B/P 104/56 93/48 Pulse Ox 95 96 O2 Delivery Room Air Nasal Cannula Room Air Room Air 06/11/16 06/12/16 06/12/16 06/12/16 23:30 02:45 07:36 08:00 Temp 97.9 99.4 97.9 99.4 Pulse 90 85 Resp 14 16 B/P 81/43 99/58 Pulse Ox 97 94 96 O2 Delivery Nasal Cannula Room Air Room Air Room Air O2 Flow Rate 2.0 2.0 06/12/16 09:00 Temp 98.2 98.2 Pulse 89 Resp 16 B/P 94/60 Pulse Ox 96 O2 Delivery Room Air Intake and Output 06/11/16 06/11/16 06/12/16 15:00 23:00 07:00 Intake Total 1750 ml Balance 1750 ml REUBEN GRIGGS MD Jun 12, 2016 09:59
[2016-06-12] MEDS ORDERED: ATOR40TA59 PO (10:01)
[2016-06-12] MEDS ORDERED: PANT40TA5 PO (10:01)
--- NOTE | 2016-06-12 10:05 | PDOC ---
Provider Note Provider Note Discharge summary dictated. #[id number] REUBEN GRIGGS MD Jun 12, 2016 10:05
[2016-06-12 11:00] VITALS: BP 98/64
--- NOTE | 2016-06-12 11:36 | PDOC ---
PULMONARY PROGRESS NOTES Subjective feels better no CP Vitals Vital Signs Date Time Temp Pulse Resp B/P Pulse Ox O2 Delivery O2 Flow Rate FiO2 06/12/16 11:13 96 Room Air 06/12/16 09:00 98.2 89 16 94/60 98.2 06/12/16 08:00 2.0 General: Alert, No acute distress Lungs: Clear Cardiovascular: S1 Abdomen: Soft Neuro Exam: Alert Extremities: No Edema Skin: Warm Labs Laboratory Tests Test 06/10/16 14:05 06/10/16 19:55 06/10/16 20:00 06/11/16 04:10 Troponin I Quantitative < 0.017ng/mL (0.000-0.055) < 0.017ng/mL (0.000-0.055) < 0.017ng/mL (0.000-0.055) Influenza Type A Antigen Negative (NEGATIVE) Influenza Type B Antigen Negative (NEGATIVE) White Blood Count 11.0x10^3/uL (4.0-11.0) Red Blood Count 3.50x10^6/uL (4.30-5.70) Hemoglobin 10.9g/dL (13.0-17.5) Hematocrit 32.0% (39.0-53.0) Mean Corpuscular Volume 92fL (79-100) Mean Corpuscular Hemoglobin 31pg (25-35) Mean Corpuscular Hemoglobin Concent 34g/dL (31-37) Red Cell Distribution Width 13.9% (11.5-14.5) Platelet Count 216x10^3/uL (140-400) Neutrophils (%) (Auto) 62% (31-73) Lymphocytes (%) (Auto) 26% (24-48) Monocytes (%) (Auto) 9% (0-9) Eosinophils (%) (Auto) 2% (0-3) Basophils (%) (Auto) 1% (0-3) Neutrophils # (Auto) 6.8x10^3uL (1.8-7.7) Lymphocytes # (Auto) 2.9x10^3/uL (1.0-4.8) Monocytes # (Auto) 1.0x10^3/uL (0.0-1.1) Eosinophils # (Auto) 0.2x10^3/uL (0.0-0.7) Basophils # (Auto) 0.1x10^3/uL (0.0-0.2) Sodium Level 143mmol/L (136-145) Potassium Level 4.1mmol/L (3.5-5.1) Chloride Level 108mmol/L (98-107) Carbon Dioxide Level 27mmol/L (21-32) Anion Gap 8 (6-14) Blood Urea Nitrogen 14mg/dL (8-26) Creatinine 1.0mg/dL (0.7-1.3) Estimated GFR (Cockcroft-Gault) 78.8 Glucose Level 104mg/dL (70-99) Calcium Level 7.8mg/dL (8.5-10.1) Test 06/11/16 12:45 06/11/16 16:30 06/12/16 05:00 Procalcitonin 1.94ng/mL (0.00-0.10) Iron Level 36ug/dL (65-175) Total Iron Binding Capacity 242ug/dL (250-450) Iron Saturation 15% (15-34) White Blood Count 10.3x10^3/uL (4.0-11.0) Red Blood Count 3.57x10^6/uL (4.30-5.70) Hemoglobin 11.3g/dL (13.0-17.5) Hematocrit 32.5% (39.0-53.0) Mean Corpuscular Volume 91fL (79-100) Mean Corpuscular Hemoglobin 32pg (25-35) Mean Corpuscular Hemoglobin Concent 35g/dL (31-37) Red Cell Distribution Width 13.6% (11.5-14.5) Platelet Count 225x10^3/uL (140-400) Neutrophils (%) (Auto) 72% (31-73) Lymphocytes (%) (Auto) 18% (24-48) Monocytes (%) (Auto) 8% (0-9) Eosinophils (%) (Auto) 2% (0-3) Basophils (%) (Auto) 1% (0-3) Neutrophils # (Auto) 7.4x10^3uL (1.8-7.7) Lymphocytes # (Auto) 1.8x10^3/uL (1.0-4.8) Monocytes # (Auto) 0.8x10^3/uL (0.0-1.1) Eosinophils # (Auto) 0.2x10^3/uL (0.0-0.7) Basophils # (Auto) 0.1x10^3/uL (0.0-0.2) Laboratory Tests Test 06/11/16 12:45 06/11/16 16:30 06/12/16 05:00 Procalcitonin 1.94ng/mL (0.00-0.10) Iron Level 36ug/dL (65-175) Total Iron Binding Capacity 242ug/dL (250-450) Iron Saturation 15% (15-34) White Blood Count 10.3x10^3/uL (4.0-11.0) Red Blood Count 3.57x10^6/uL (4.30-5.70) Hemoglobin 11.3g/dL (13.0-17.5) Hematocrit 32.5% (39.0-53.0) Mean Corpuscular Volume 91fL (79-100) Mean Corpuscular Hemoglobin 32pg (25-35) Mean Corpuscular Hemoglobin Concent 35g/dL (31-37) Red Cell Distribution Width 13.6% (11.5-14.5) Platelet Count 225x10^3/uL (140-400) Neutrophils (%) (Auto) 72% (31-73) Lymphocytes (%) (Auto) 18% (24-48) Monocytes (%) (Auto) 8% (0-9) Eosinophils (%) (Auto) 2% (0-3) Basophils (%) (Auto) 1% (0-3) Neutrophils # (Auto) 7.4x10^3uL (1.8-7.7) Lymphocytes # (Auto) 1.8x10^3/uL (1.0-4.8) Monocytes # (Auto) 0.8x10^3/uL (0.0-1.1) Eosinophils # (Auto) 0.2x10^3/uL (0.0-0.7) Basophils # (Auto) 0.1x10^3/uL (0.0-0.2) Medications Active Scripts Medications Dose Route/Sig Days Date Category Impression . 1. Chest pain appears to be atypical. This got better with GI cocktail, most likely due to peptic ulcer disease and gastroesophageal reflux disease. I do not suspect any thromboembolic disease. 2. Fever. I suspect viral pneumonitis. He has some bibasilar atelectasis or infiltrates is best seen on the CT chest. Plan . 1. Follow GI recommendations. He has previous EGD more than 3 years ago, which showed ulcer with normal biopsies. Continue with H2 delmer and PPI. His symptoms have improved. 2. No further fever. suspect viral 3. d/c antibiotics per ID 4. Continue DuoNeb. 5. Discussed with the patient's family. 6. Cancel V/Q scan ok with home OMEGA VILLEGAS MD Jun 12, 2016 11:36
--- NOTE | 2016-06-12 21:00 | DS ---
DATE OF DISCHARGE: 06/12/2016 REASON FOR ADMISSION TO THE HOSPITAL: Chest pain. CONSULTATIONS: 1. Cardiology, Dr. Dawn. 2. Dr. Murcia. PROCEDURES DONE: 1. CT chest. 2. Echocardiogram. 3. STRESS TEST: 4. EGD. HOSPITAL COURSE: The patient is a 50-year-old male with history of smoking as well as drinking, came with severe retrosternal pain, had a CT chest negative for PE, cardiac enzymes and EKG was negative, seen by Cardiology. Echo shows ejection fraction 55%, normal left ventricular function. The patient had a stress test negative for ischemia, little bit of scarring maybe fixed defect on the inferior wall,? could be an artefact. The patient had an EGD, which shows reflux with possible questionable Bashir's, gastroduodenal erosions and the patient was put on Protonix was discharged home. Follow up with the primary care physician in 2 weeks and GI followup again in 2-3 months and Cardiology followup. FINAL DIAGNOSES: 1. Chest pain secondary to reflux disease, questionable Bashir's. 2. Gastric and duodenal erosions. 3. History of alcohol drinking in the past. 4. Smoking 5. Hyperlipidemia. PLAN: At this time, disposition home. Atorvastatin 40 mg, Protonix 40 mg daily, smoking counseling was done. Avoid alcohol and follow up PCP in 2 weeks. REUBEN GRIGGS MD DR: CHAYITO/fatimah JOB#: [id number] / [id number] ecc ____, Dr. KHAN
--- NOTE | 2016-06-15 14:41 | PATHOLOGY ---
PATHOLOGY REPORT * * * * * * * * FINAL DIAGNOSIS: Esophageal biopsy, distal esophagus: - Segments of esophagogastric mucosa showing chronic inflammation. COMMENT: Sections of the distal esophageal biopsy reveal segments of esophagogastric mucosa showing moderate to marked chronic inflammation. The squamous mucosa is focally hyperplastic. There is no evidence of Bashir's change, dysplasia, or malignancy. (JPM:; d/t: 06/15/16) REPORT ELECTRONICALLY SIGNED BY: Ismael Sr M.D. DATE/TIME: 06/15/2016 14:41 * * * * * * * * GROSS PATHOLOGY: Received in formalin labeled "Ashley Conte, distal esophagus biopsy," are two segments of pugh soft tissue measuring 0.6 x 0.5 x 0.1 cm in aggregate dimensions and ranging from 0.3 to 0.5 cm in maximum dimension. The specimen is submitted entirely in cassette A1. (CAA; 06/12/2016) INITIAL CPT CODE(S): A; 39147 Professional services performed [place] [address] Technical services performed by [facility] at [address] [place] [address]. SPECIMEN(S) RECEIVED: A.Distal esophagus biopsy, r/o Bashir's CLINICAL HISTORY: Nausea, vomiting, R/O Bashir's PATIENT: ASHLEY CONTE /AGE: 9 1965 (Age: 50) PATIENT #: [id number] ALT CASE #: SPECIMEN COLLECTION DATE: 06/11/2016 SPECIMEN RECEIVED DATE: 06/12/2016 [facility] - [address] [place] [address] - PHONE: [phone] * * * END OF REPORT * * *
== END 2016-06-12 13:30 | disposition home or self-care (01) | DRG 381 ==
LOC: ER 08:11 → 2 SOUTH 10:42
PROVIDERS: ADMIT Internal Medicine; ATTEND Internal Medicine
PROC: 0DB58ZX Excision of Esophagus, Via Natural or Artificial Opening Endoscopic, Diagnostic (ICD-10-PCS; principal; 2016-06-11 15:00)
DX: K22.70 Barrett's esophagus without dysplasia (principal); J81.1 Chronic pulmonary edema; J98.11 Atelectasis; D72.829 Elevated white blood cell count, unspecified; E78.1 Pure hyperglyceridemia; F17.210 Nicotine dependence, cigarettes, uncomplicated; K21.9 Gastro-esophageal reflux disease without esophagitis; D64.9 Anemia, unspecified; K26.9 Duodenal ulcer, unspecified as acute or chronic, without hemorrhage or perforation; M19.90 Unspecified osteoarthritis, unspecified site; Z80.7 Family history of other malignant neoplasms of lymphoid, hematopoietic and related tissues; Z82.49 Family history of ischemic heart disease and other diseases of the circulatory system; Z83.3 Family history of diabetes mellitus; Z87.11 Personal history of peptic ulcer disease; Z87.19 Personal history of other diseases of the digestive system; Z90.49 Acquired absence of other specified parts of digestive tract
CPT/HCPCS: 36415; 71010; 71275; 78452; 80047; 80048; 80061; 80076; 81001; 83036; 83540; 83550; 83690; 83880; 84145; 84484; 85027; 85379; 85610; 85730; 87040; 87804; 90686; 93005; 93017; 93306; 94250; 94640; 96360; 96374; 96375; 96376; 99406; A9500; G0481; J2270; J2405; J2543; J2704; J2785; J3010; J3370; J7030; J7040; J7620; Q9967; S0028; 99285-25

== ENCOUNTER → 2017-02-05 | Day surgery (SDC) | payer OTHER ==
[~2017-02-05] MED LIST changes: +ATOR40TA59 PO; +IV RINGERS,LACTATED 1000ML 1,000 ML IV ONE; +LIDOCAINE 2% PF Vial for OR 5 ML VIAL. ONE; +PANT40TA5 PO; +PROPOFOL 40 ML IV ONE
--- NOTE | 2017-02-05 09:25 | PDOC1 ---
HISTORY & PHYSICAL H&P Juancarlos Torres [id number] 1965 01/26/2017 03:00 PM 04/19 [facility] [email or web address] [facility] OUR PATIENTS COM[facility] FIRST [address] [place] [address] Ph. [phone] Patient: Juancarlos Torres Date of : 1965 Date: 01/26/2017 3:00 PM Visit Type: Consult This 51 year old male presents for Screening colonoscopy. History of Present Illness: 1. Screening colonoscopy No prior screening. Denies risk factors. Pertinent negatives include abdominal pain, change in bowel habits, change in stool caliber, constipation, decreased appetite, diarrhea, melena, nausea, rectal bleeding, vomiting, weight gain and weight loss. Additional information: No family history of colon cancer , No family history of Crohn's/colitis and No NSAID/ASA use. INTAKE COMMENTS: Intake Comments: Nurse Note: the pt is here today to schedule a screening colonoscopy, the pt has had no prior screening and no complaints at this time. PROBLEM LIST: Problem Description Onset Date Chronic Notes Renal colic 05/28/2015 PAST MEDICAL/SURGICAL HISTORY (Detailed) Disease/disorder Onset Date Management Date Comments GERD Hyperlipidemia Lipoma Medications (Active): Started Medication Directions Instruction Stopped 12/25/2016 atorvastatin 40 mg tablet take 1 tablet by oral route every day 12/25/2016 pantoprazole 40 mg tablet,delayed release take 1 tablet by oral route every day Allergies: Ingredient Reaction Medication Name Comment NO KNOWN ALLERGIES REVIEW OF SYSTEMS System Neg/Pos Details Constitutional Negative Chills, fever, malaise, weight gain and weight loss. ENMT Negative Sore throat. Eyes Negative Double vision. Respiratory Negative Dyspnea and wheezing. Cardio Negative Chest pain and irregular heartbeat/palpitations. GI Positive See HPI. GI Negative Abdominal pain, change in bowel habits, change in stool caliber, constipation, decreased appetite, diarrhea, melena, nausea, see HPI, rectal bleeding and vomiting. Negative Dysuria and hematuria. Endocrine Negative Cold intolerance and heat intolerance. Psych Negative Anxiety. Integumentary Negative Hives and rash. MS Negative Joint pain. Faisal/Lymph Negative Easy bleeding and easy bruising. Allergic/Immuno Negative Animals at home and food allergies. PHYSICAL EXAM: Exam Findings Details Constitutional Normal Well developed. Eyes Normal Conjunctiva - Right: Normal, Left: Normal. Sclera - Right: Normal, Left: Normal. Nasopharynx Normal Lips/teeth/gums - Normal. Neck Exam Normal Inspection - Normal. Thyroid gland - Normal. Respiratory Normal Inspection - Normal. Auscultation - Normal. Cardiovascular Normal Regular rate and rhythm. No murmurs, gallops, or rubs. Vascular Normal Pulses - Carotids: Normal, Femoral: Normal, Dorsalis pedis: Normal. Abdomen Normal Inspection - Normal. Anterior palpation - No guarding. No abdominal tenderness. No hepatic enlargement. No splenic enlargement. No hernia. No ascites. Skin Normal Inspection - Normal. Extremity Normal No edema. Psychiatric * Oriented to time, place, person and situation. Psychiatric Normal Appropriate mood and effect. Assessment/Plan # Detail Type Description 1. Assessment Encounter for screening colonoscopy (Z12.11). Patient Plan schedule colonoscopy at [facility] Plan Orders Further diagnostic evaluations ordered today include(s) Colonoscopy to be performed today. He is to schedule a follow-up visit with Yemi Hoff MD upon completion of work-up Electronically signed by: Yemi Hoff MD 01/26/2017 03:09 PM Document generated by: Yemi Hoff 01/26/2017 03:09 PM Matteo Abraham MD, Family Practice; Miguel White MD Internal Medicine; Sam Wahl MD, Internal Medicine; Mark Hoff MD Internal Medicine; Yemi Hoff MD, Gastroenterology; Fabian Wallace MD, Rheumatology, S. Jm Patel, Physical Medicine/Rehab Alex Grijalva APRN ------ 02/05/17 Patient seen and examined. No change in H&P. YEMI HOFF MD Feb 05, 2017 09:25
[2017-02-05 10:59] VITALS: BP 112/67
--- NOTE | 2017-02-08 10:57 | PATHOLOGY ---
PATHOLOGY REPORT * * * * * * * * FINAL DIAGNOSIS: Colon biopsies, cecal polyp: - Hyperplastic polyp. - Fecal/vegetable material. (JPM:pit; 02/08/2017) COMMENT: There is no high-grade dysplasia or evidence of malignancy. (JPM:pit; 02/08/2017) REPORT ELECTRONICALLY SIGNED BY: Ismael Sr M.D. DATE/TIME: 02/08/2017 10:56 * * * * * * * * GROSS PATHOLOGY: Received in formalin labeled "Ashley Conte, cecum polyp," are multiple segments of pugh soft tissue along with vegetative material measuring 3.0 x 2.4 x 0.2 cm in aggregate dimensions and ranging from 0.1 to 0.4 cm in maximum dimension. The specimen is submitted entirely in cassette A1. (TSD; 02/05/2017) INITIAL CPT CODE(S): A; 12225 Professional services [place] [address] Technical services performed by [facility] at [address] [place] [address] [address], [place] [address]. SPECIMEN(S) RECEIVED: A.Cecum polyp CLINICAL HISTORY: Colon screening PATIENT: ASHLEY CONTE /AGE: 9 1965 (Age: 51) PATIENT #: [id number] ALT CASE #: SPECIMEN COLLECTION DATE: 02/05/2017 SPECIMEN RECEIVED DATE: 02/05/2017 [facility] - [address] [place] [address] - PHONE: [phone] * * * END OF REPORT * * *
== END | disposition home or self-care (01) ==
LOC: ENDOS 09:15
PROVIDERS: ATTEND Internal Medicine Gastroenterology
DX: Z12.11 Encounter for screening for malignant neoplasm of colon (principal); E78.00 Pure hypercholesterolemia, unspecified; I10 Essential (primary) hypertension; K21.9 Gastro-esophageal reflux disease without esophagitis; F17.200 Nicotine dependence, unspecified, uncomplicated; Z98.890 Other specified postprocedural states; Z90.49 Acquired absence of other specified parts of digestive tract
CPT/HCPCS: 45381; 45385; 88305; J2704; J2001